=== PATIENT | male | born 1960 | race Caucasian/White ===

== ENCOUNTER 2019-07-08 10:48 | Observation (INO) ==
[2019-07-08 11:20] LABS: POC Blood Urea Nitrogen 18 mg/dl (6-20); POC CO2 24 mmol/L (22-30); POC Calcium, Ionized 1.07 mmol/L (1.16-1.32); POC Chloride 101 mmol/L (96-108); POC Glucose, Random 92 mg/dL (70-105); POC Sodium 137 mmol/L (133-145)
--- NOTE | 2019-07-08 11:42 | Emergency Department Note ---
Abdominal Pain HPI - General Chief Complaint: Abdominal Pain Stated Complaint: severe abd pain Time Seen by Provider: 07/08/19 11:00 Source: patient, family Mode of arrival: wheelchair Limitations: no limitations - History of Present Illness HPI Narrative: 58-year-old male on dialysis comes in complaining of abdominal pain. He is obtunded. He states he feels like he has an infection somewhere. He came in yesterday for cellulitis of the right elbow and was given Keflex and discharged home. He did not have a leukocytosis yesterday. I reviewed the note from yesterday. He seems obtunded but is able to give me reasonable history. He notes that his fistula hurts. they are not using it because it is clogged; he has a dialysis catheter in place on the right upper chest. He feels very ill He sees Dr. Mcconnell in [place] for dialysis and is due tomorrow morning Notes that he had a recent fall off a scaffold with an elbow and wrist fracture as well as fracturing his ileum and tailbone. He says these are okay at this time but he is on Dilaudid for pain - Related Data Home Medications Medication Instructions Recorded Confirmed Cinacalcet [Sensipar] 30 mg PO QAMCC 07/23/15 10/11/15 Cyclobenzaprine [Flexeril] 10 mg PO DAILY 07/23/15 07/08/19 Darbepoetin [place] in Polysorbat 25 mcg IJ MONTHLY 07/23/15 10/11/15 [Aranesp] Lactulose [Enulose] 10 gm PO TID PRN 07/23/15 07/08/19 Metoprolol Tartrate [Lopressor] 25 mg PO BID 07/23/15 10/11/15 Omeprazole [PriLOSEC] 20 mg PO QAM 07/23/15 07/08/19 Sevelamer Carbonate [Renvela] 0.8 gm PO QAM 07/23/15 07/08/19 Zolpidem [Ambien] 5 mg PO HSP PRN 07/23/15 07/08/19 Cyanocobalamin (Vitamin B-12) 2,500 mcg PO DAILY 07/08/19 07/08/19 [Vitamin B12] Milk Thistle 500 mg PO QAM 07/08/19 07/08/19 Previous Rx's Medication Instructions Recorded traMADol [Ultram] 50 mg PO Q4-6HP PRN #20 tablet 07/23/15 Cephalexin [Keflex] 500 mg PO QID #40 cap 07/07/19 Allergies Allergy/AdvReac Type Severity Reaction Status Date / Time ibuprofen [IBUPROFEN] Allergy Mild hives, Verified 07/08/19 10:50 swelling acetaminophen [From TYLENOL] Allergy Unknown HIVES Verified 07/08/19 10:50 hydrocodone Allergy Unknown UNKNOWN Verified 07/08/19 10:50 Penicillins Allergy Unknown UNKNOWN Verified 07/08/19 10:50 Sulfa (Sulfonamide Allergy Unknown UNKNOWN Verified 07/08/19 10:50 Antibiotics) [SULFA (SULFONAMIDE ANTIBIOTICS)] Review of Systems All systems ED: reviewed and negative except as stated. Abdominal Pain PMH - Past Medical History Attestation: Yes: The following information was validated with the patient. [facility] Narrative: Family History Other No pertinent family history Medical History Anxiety (Acute) Antalgic gait (Acute) Peripheral edema (Acute) Renal impairment (Acute) Cirrhosis of liver (Acute) Hypertension (Acute) Lumbar disc prolapse with compression radiculopathy (Acute) Erectile dysfunction (Acute) Groin pain (Acute) Testicular pain (Acute) Dysuria (Acute) Urinary frequency (Acute) Low back pain radiating to both legs (Acute) Hematuria (Acute) Back pain (Acute) Chronic back pain (Acute) Past Surgical History History of hernia repair (Acute) Medical history: Reports: other (Chronic renal disease on dialysis, hypertension, cervical disc disease, chronic back pain) - Social History Smoking status: Former smoker Alcohol use: Reports: None (history of alcoholism states he has quit) Drug use: Reports: none Physical Exam Overweight male obtunded. He is able to wake up and answer questions however. Normocephalic atraumatic. Conjunctive are clear sclera white nonicteric. No nasal discharge or congestion. Oropharynx with dry buccal mucosa. Neck is supple without lymph apathy thyromegaly or carotid bruit. Heart is regular rate and rhythm no murmurs appreciated. Lungs are clear to auscultation bilaterally without wheezes rales rhonchi or respiratory distress. He does have a dialysis catheter in place on the right upper chest wall. Fistula is on his left bicep area. It is mildly tender but not red. Abdomen is soft mildly tender throug hout. Abdomen is nondistended. No peritoneal signs or guarding. Also note right arm with a cast on his wrist and some very mild redness at the extensor surface of his right elbow. This does not appear to be acutely inflamed-Per report this actually looks better. No pedal edema. Limitations: no limitations Course Vital Signs Temperature 97.5 F 07/08/19 10:48 Pulse Rate 73 07/08/19 10:48 Respiratory Rate 26 H 07/08/19 10:48 Blood Pressure 157/94 07/08/19 10:48 Pulse Oximetry (%) 100 07/08/19 10:48 Temperature 97.5 F 07/08/19 10:48 Pulse Rate 106 H 07/08/19 18:31 Respiratory Rate 18 07/08/19 18:13 Blood Pressure 164/75 07/08/19 18:31 Pulse Oximetry (%) 100 07/08/19 18:31 Abdominal Pain - Lab Data Lab results reviewed: Yes I reviewed the patient's lab results. Result diagrams: 07/08/19 11:11 07/08/19 11:11 Lab Results 07/08/19 07/08/19 07/08/19 Range/Units 11:11 11:11 11:11 WBC 4.7 (4.5-11.0) K/mcL RBC 2.62 L (4.50-5.90) M/mcL Hgb 9.1 L (13.5-16.5) g/dL Hct 26.0 L (41.0-55.0) % POC Hct 25.0 L (41.0-55.0) % MCV 99.2 (80.0-100.0) fL MCH 34.7 H (26.0-34.0) pg MCHC 35.0 (31.0-36.0) g/dL RDW 13.8 (11.5-14.5) % Plt Count 171 (140-440) K/mcL MPV 6.9 L (7.4-10.4) fL Total Counted 100 Seg Neutrophils % 73 (38-78) % Band Neutrophils % Not Reportable Lymphocytes % 12 L (15-49) % Monocytes % (Manual) 13 H (1-12) % Eosinophils % (Manual) 2 (0-7) % Platelet Estimate Normal (NORMAL) RBC Morphology Normal (NORMAL) VBG Lactic Acid 1.3 (0.5-2.0) mmol/L POC Sodium 137 (133-145) mmol/L Sodium 137 (133-145) mmol/L POC Potassium 4.0 (3.3-5.1) mmol/L Potassium 4.1 (3.3-5.1) mmol/L POC Chloride 101 (96-108) mmol/L Chloride 100 (96-108) mmol/L Carbon Dioxide 23 (22-30) mmol/L POC Total CO2 24 (22-30) mmol/L Anion Gap 14.0 (8-16) POC BUN 18 (6-20) mg/dl BUN 19 (6-20) mg/dl Creatinine 6.2 H* (0.7-1.2) mg/dl POC Creatinine 7.0 H* (0.7-1.2) mg/dl GFR Calculation 9 Glucose 94 (70-105) mg/dL POC Glucose 92 (70-105) mg/dL Calcium 9.2 (8.6-10.4) mg/dl POC WB Ioniz Calcium 1.07 L (1.16-1.32) mmol/L Total Bilirubin 0.7 (0.0-1.0) mg/dL AST 18 (0-37) U/l ALT 10 (0-40) U/l Alkaline Phosphatase 87 (39-117) U/L Ammonia (16-60) umol/L Total Protein 7.3 (5.9-8.4) gm/dL Albumin 3.7 (3.2-5.2) gm/dL Globulin 3.6 (2.2-3.7) gm/dL Albumin/Globulin Ratio 1.0 (1.0-2.3) Procalcitonin (<0.10) ng/mL Urine Color Urine Appearance Urine pH (5.0-9.0) Ur Specific [place] (1.000-1.035) Urine Protein (NEG) mg/dL Urine Glucose (UA) (NEG) mg/dL Urine Ketones (NEG) mg/dL Urine Occult Blood (<0.03) mg/dL Urine Nitrate (NEG) Urine Bilirubin (NEG) mg/dL Urine Urobilinogen (NEG) mg/dL Ur Leukocyte Esterase (NEG) /uL Urine RBC (0-1) /hpf Urine WBC (0-4) /hpf Ur Squamous Epith Cells (0-4) /hpf Urine Bacteria (0) /hpf 07/08/19 07/08/19 07/08/19 Range/Units 11:11 12:50 13:17 WBC (4.5-11.0) K/mcL RBC (4.50-5.90) M/mcL Hgb (13.5-16.5) g/dL Hct (41.0-55.0) % POC Hct (41.0-55.0) % MCV (80.0-100.0) fL MCH (26.0-34.0) pg MCHC (31.0-36.0) g/dL RDW (11.5-14.5) % Plt Count (140-440) K/mcL MPV (7.4-10.4) fL Total Counted Seg Neutrophils % (38-78) % Band Neutrophils % Lymphocytes % (15-49) % Monocytes % (Manual) (1-12) % Eosinophils % (Manual) (0-7) % Platelet Estimate (NORMAL) RBC Morphology (NORMAL) VBG Lactic Acid (0.5-2.0) mmol/L POC Sodium (133-145) mmol/L Sodium (133-145) mmol/L POC Potassium (3.3-5.1) mmol/L Potassium (3.3-5.1) mmol/L POC Chloride (96-108) mmol/L Chloride (96-108) mmol/L Carbon Dioxide (22-30) mmol/L POC Total CO2 (22-30) mmol/L Anion Gap (8-16) POC BUN (6-20) mg/dl BUN (6-20) mg/dl Creatinine (0.7-1.2) mg/dl POC Creatinine (0.7-1.2) mg/dl GFR Calculation Glucose (70-105) mg/dL POC Glucose (70-105) mg/dL Calcium (8.6-10.4) mg/dl POC WB Ioniz Calcium (1.16-1.32) mmol/L Total Bilirubin (0.0-1.0) mg/dL AST (0-37) U/l ALT (0-40) U/l Alkaline Phosphatase (39-117) U/L Ammonia 10 L (16-60) umol/L Total Protein (5.9-8.4) gm/dL Albumin (3.2-5.2) gm/dL Globulin (2.2-3.7) gm/dL Albumin/Globulin Ratio (1.0-2.3) Procalcitonin < 0.10 (<0.10) ng/mL Urine Color Yellow Urine Appearance Clear Urine pH 9.0 (5.0-9.0) Ur Specific [place] 1.017 (1.000-1.035) Urine Protein 100 A (NEG) mg/dL Urine Glucose (UA) Negative (NEG) mg/dL Urine Ketones Neg (NEG) mg/dL Urine Occult Blood Neg (<0.03) mg/dL Urine Nitrate Neg (NEG) Urine Bilirubin Neg (NEG) mg/dL Urine Urobilinogen Neg (NEG) mg/dL Ur Leukocyte Esterase Neg (NEG) /uL Urine RBC 0 (0-1) /hpf Urine WBC 1 (0-4) /hpf Ur Squamous Epith Cells < 1 (0-4) /hpf Urine Bacteria 0 (0) /hpf - Radiology Data Radiology results reviewed: Yes I reviewed the patient's radiology results. X-ray shows nonspecific bowel gas pattern - EKG Data EKG attestation: Yes I reviewed and interpreted this EKG., Yes There are no EKG findings of acute coronary syndrome, Yes This EKG will be read by english composition instructor Disposition Pt seen by PAINTER SUPERVISOR/PA only: No Clinical Impression: Cellulitis of right elbow, Chronic kidney disease with end stage renal failure on dialysis, Refractory nausea and vomiting, Drug-induced nausea and vomiting, Hypertensive urgency Summary: Concern for sepsis as the patient looks quite ill. Get blood cultures start Levaquin. Labs ordered. At this time he does not require resuscitation with fluids as his blood pressure and vitals are adequate. He does make urine so we will test that as well Abdominal x-ray series shows nonspecific bowel gas. Reviewed the CT of the abdomen pelvis from yesterday which had no acute findings Laboratory here today is unrevealing. Urinalysis is sent off. Ammonia level was added. He was less obtunded Ammonia level was okay. After further reassessing the patient it does sound like maybe he is not tolerating the hydromorphone that he is taking for his pain. He wants to try and eat something perhaps some hot broth. So we will give him a trial of oral intake see how he does. At this time CT scan was normal yesterday and laboratory remained normal today here. He is making urine that is normal Ordered hydralazine for his blood pressure. We gave him lactulose for his constipation-takes this at home as well His nausea waxed and waned. However he had some dry heaves after trying to eat some broth and crackers I discussed his case with Dr. Mcconnell, his drip box tender, who agreed to consult on the patient for dialysis tomorrow. I then discussed the case with our hospitalist Dr. Hastings. He agreed to accept the patient for further care and evaluation in the hospital. He recommended we start a nicardipine drip for his hypertensive urgency Disposition: Xfer As Inpt (TS) Condition: Fair
[2019-07-08 11:46] LABS: Hemoglobin 9.1 g/dL (13.5-16.5); Mean Cell Volume 99.2 fL (80.0-100.0); Mean Platelet Volume 6.9 fL (7.4-10.4); Platelet Count 171 K/mcL (140-440); RBC 2.62 M/mcL (4.50-5.90); Red Cell Distribution Width 13.8 % (11.5-14.5); WBC 4.7 K/mcL (4.5-11.0)
[2019-07-08] MEDS ORDERED: LEVOFLOXACIN 500 MG/100 ML BAG IV ONE (11:52)
--- NOTE | 2019-07-08 11:59 | XRay Report ---
HISTORY: Left-sided abdominal pain with fever and chills. FINDINGS: The patient has a TIPS stent located high in the right lobe of the liver. The bowel gas pattern is normal. There is no free intra-abdominal air. There is a hiatus hernia. A radiopaque tablet in present in the ascending colon. There is no evidence of bowel obstruction or ileus Mild arthritis is present in the lumbar spine. There has been no significant change from the abdomen and pelvic CT scan done on 07/07/19. IMPRESSION: No acute abnormality Interpreted and Authenticated by: Félix Cornelius 07/08/19
[2019-07-08 12:09] LABS: ALT/SGPT 10 U/l (0-40); AST/SGOT 18 U/l (0-37); Albumin 3.7 gm/dL (3.2-5.2); Alkaline Phosphatase 87 U/L (39-117); Bilirubin,Total 0.7 mg/dL (0.0-1.0); Blood Urea Nitrogen 19 mg/dl (6-20); Calcium 9.2 mg/dl (8.6-10.4); Carbon Dioxide 23 mmol/L (22-30); Chloride 100 mmol/L (96-108); Globulin 3.6 gm/dL (2.2-3.7); Glomerular Filtration Rate 9; Glucose 94 mg/dL (70-105)
[2019-07-08 12:14] LABS: Eosinophils % (Manual) 2 % (0-7); Lymphocytes % 12 % (15-49); Monocytes % (Manual) 13 % (1-12); Platelet Estimate NORMAL (NORMAL); RBC Morphology NORMAL (NORMAL); Segmented Neutrophils % 73 % (38-78)
[2019-07-08 13:32] LABS: Appearance,Urine CLEAR; Bacteria,Urine 0 /hpf (0); Bilirubin,Urine NEG (NEG); Color,Urine YELLOW; Glucose,Urine (UA) NEGATIVE (NEG); Ketones,Urine NEG (NEG); Leukocyte Esterase,Urine NEG /uL (NEG); Nitrate,Urine NEG (NEG); Protein,Urine 100 mg/dL (NEG); Specific Gravity,Urine 1.017 (1.000-1.035); Urine Blood NEG mg/dL (<0.03); Urine RBC 0 /hpf (0-1); Urine Squamous Epithelial Cell < 1 /hpf (0-4); Urine WBC 1 /hpf (0-4); Urobilinogen,Urine NEG (NEG)
[2019-07-08] MEDS ORDERED: hydrALAZINE 20 MG/ML VIAL IV ONE (15:12)
[2019-07-08] MEDS ORDERED: ONDANSETRON 4 MG/2 ML VIAL IV ONE (16:25)
[2019-07-08] MEDS ORDERED: PROMETHAZINE 25 MG/ML VIAL IV ONE (16:56)
[2019-07-08] MEDS ORDERED: LACTULOSE 20 GM/30 ML ORAL.SOL PO ONE (17:05)
[2019-07-08] MEDS ORDERED: niCARdipine 25 MG in 0.9 % SODIUM CHLORIDE 240 ML IV ONE (17:40)
[2019-07-08] MEDS ORDERED: ACETAMINOPHEN 325 MG TABLET PO PRN (18:40)
[2019-07-08] MEDS ORDERED: ONDANSETRON 4 MG/2 ML VIAL IV PRN (18:40)
--- NOTE | 2019-07-08 18:48 | Internal Med History&Physical ---
Medical - H&P: [facility] Patient information: Note initiated : 07/08/19 at 6:45 pm Service Date, if different from initiated Date: [] Patient: Aba Jarvis a 58 y/o M admitted on 07/08/19 for severe abd pain. Chief Complaint: [] Chief complaint: Abdominal pain, nausea vomiting History of present illness: Mr. Jarvis is a 58 year old M with a history of liver cirrhosis, ESRD on HD managed by Dr. Mcconnell. Patient presents second time to the ER in the last 48 hours with increasing nausea weakness and abdominal pain. Patient had a very eventful last 3 weeks after he fell from a scaffolding sustaining multiple right wrist fracture, pelvis fracture, elbow fracture. Is currently on her right wrist splint shortly following the injury patient left arm fistula occluded and he was sent to [facility] for dialysis catheter placement. He has been receiving dialysis 3 times a week however over the last 48 hours has noted increased abdominal pain, weakness, persistent nausea and vomiting unable to take anything by mouth. He was at [facility] 2 days ago and was discharged after a brief stay. He then presented to [place] ER initial work-up of the abdomen was unremarkable except for cellulitis right elbow. He was started on Keflex and was discharged home. He presents again today with multiple symptoms including abdominal pain, left arm fistula site pain and nausea and increasing confusion. Initial blood work was unremarkable except being consistent with a ESRD. Systolics around 190s to 200. Patient was started on nicardipine drip. Hospitalist service was consulted in light of persistent symptoms and failed outpatient treatment and hypertensive urgency. At the time of evaluation patient is anxious, distressed for abdominal pain/left fistula site pain. He is tachycardic and tremulous. He however denies fever chills, diarrhea, recent sick contacts. He denies changes in medications. He denies prior similar episodes. He endorses to bilious vomiting multiple episodes in the last 24 hours. Review of systems A 10 point review of system was performed and is negative except as above Medical - H&P: PMH Medical history: Antalgic gait (Acute) Back pain (Acute) Chronic back pain (Acute) Cirrhosis of liver (Acute) Dysuria (Acute) Erectile dysfunction (Acute) since hernia surgery, 2013 Groin pain (Acute) Hematuria (Acute) Hypertension (Acute) Low back pain radiating to both legs (Acute) Lumbar disc prolapse with compression radiculopathy (Acute) Peripheral edema (Acute) Renal impairment (Acute) Testicular pain (Acute) Urinary frequency (Acute) Surgical HistoryReviewed 10/11/15 by Neha Carreno RN History of hernia repair (Acute) 2013 Family History Other No pertinent family history Social History Smoking Status: Never smoker Alcohol intake frequency: does not drink Lives alone Medical - H&P: Meds Home Medications Medication Instructions Recorded Confirmed Type Cinacalcet [Sensipar] 30 mg PO QAMCC 07/23/15 07/08/19 History Cyclobenzaprine [Flexeril] 10 mg PO DAILY 07/23/15 07/08/19 History Darbepoetin Stanley in Polysorbat 25 mcg IJ MONTHLY 07/23/15 07/08/19 History [Aranesp] Lactulose [Enulose] 10 gm PO TID PRN 07/23/15 07/08/19 History Metoprolol Tartrate [Lopressor] 25 mg PO BID 07/23/15 07/08/19 History Omeprazole [PriLOSEC] 20 mg PO QAM 07/23/15 07/08/19 History Sevelamer Carbonate [Renvela] 0.8 gm PO QAM 07/23/15 07/08/19 History Zolpidem [Ambien] 5 mg PO HSP PRN 07/23/15 07/08/19 History traMADol [Ultram] 50 mg PO Q4-6HP PRN #20 tablet 07/23/15 07/08/19 Rx Cephalexin [Keflex] 500 mg PO QID #40 cap 07/07/19 07/08/19 Rx Cyanocobalamin (Vitamin B-12) 2,500 mcg PO DAILY 07/08/19 07/08/19 History [Vitamin B12] Milk Thistle 500 mg PO QAM 07/08/19 07/08/19 History Allergies Allergy/AdvReac Type Severity Reaction Status Date / Time acetaminophen [From TYLENOL] Allergy Intermediate HIVES Verified 07/09/19 07:52 hydrocodone Allergy Intermediate Hives Verified 07/09/19 07:52 Penicillins Allergy Intermediate Hives Verified 07/09/19 07:51 ibuprofen [IBUPROFEN] Allergy Mild hives, Verified 07/08/19 10:50 swelling Sulfa (Sulfonamide Allergy Unknown UNKNOWN Verified 07/08/19 10:50 Antibiotics) [SULFA (SULFONAMIDE ANTIBIOTICS)] Medical - H&P: Exam - Constitutional Vitals: Temp Pulse Resp BP Pulse Ox 97.5 F 106 H 18 164/75 100 07/08/19 10:48 07/08/19 18:31 07/08/19 18:13 07/08/19 18:31 07/08/19 18:31 General appearance: moderate distress (Anxious) Exam: Anxious and distressed from abdominal pain Alert intermittently confused anxious and fidgety Head normocephalic Oral cavity dry No ear nose discharge No scleral icterus Neck no lymphadenopathy S1-S2 tachycardia, ESM grade 2 Diminished breath sounds bases right anterior chest subclavian dialysis catheter abdomen soft nontender no fluid or guarding Lower extremity no cyanosis clubbing no joint swelling, right wrist in cast, left side fistula occluded tender Skin no suspicious lesion Psych anxious but alert and cooperative Neuro confused but moving all 4 extremities Medical - H&P: Reslt - Labs CBC & Chem 7: 07/09/19 04:00 07/09/19 04:00 Labs: Short CBC 07/08/19 Range/Units 11:11 WBC 4.7 (4.5-11.0) K/mcL Hgb 9.1 L (13.5-16.5) g/dL Hct 26.0 L (41.0-55.0) % Plt Count 171 (140-440) K/mcL BMP 07/08/19 11:11 Sodium 137 Potassium 4.1 Chloride 100 Carbon Dioxide 23 BUN 19 Creatinine 6.2 H* Glucose 94 Calcium 9.2 Liver Function 07/08/19 Range/Units 11:11 Total Bilirubin 0.7 (0.0-1.0) mg/dL AST 18 (0-37) U/l ALT 10 (0-40) U/l Alkaline Phosphatase 87 (39-117) U/L Albumin 3.7 (3.2-5.2) gm/dL Urine 07/08/19 Range/Units 12:50 Urine Color Yellow Urine Appearance Clear Urine pH 9.0 (5.0-9.0) Ur Specific [place] 1.017 (1.000-1.035) Urine Protein 100 A (NEG) mg/dL Urine Glucose (UA) Negative (NEG) mg/dL Medical - H&P: A/P (1) Hypertensive urgency Current visit: Yes Status: Acute * Hypertensive urgency-continue management protocol. Start nicardipine drip. target systolic reduction 20% in the first 24 hours Nephrology consulted * ESRD on HD-managed by nephrology Dr. Mcconnell * Nausea vomiting secondary to hypertensive urgency. Continue symptomatic management * Acute encephalopathy secondary to hypertensive urgency-continue close monitoring. Normal ammonia. * History of cirrhosis continue Aldactone/Lasix * History of recurrent hepatic encephalopathy continue lactulose * History of hypertension continue metoprolol/spironolactone/clonidine. * Anemia of chronic disease management nephrology * History of CAD on Plavix/beta-vivien * GERD continue PPI * Full code * Prophylaxis heparin Plan * Observation admit * Nicardipine drip * Close hemodynamic monitoring * Prior medical condition management on home medications
[2019-07-08] MEDS ORDERED: cefTRIAXone 2 GM VIAL ONE (19:11)
[2019-07-08] MEDS: cefTRIAXone 2 GM in DEXTROSE 5% IN WATER 50 ML IV SCH (20:56)
[2019-07-08] MEDS ORDERED: SENNOSIDES/DOCUSATE SODIUM 1 TAB TABLET PO SCH (21:00)
[2019-07-08] MEDS: DOCUSATE SODIUM 100 MG CAPSULE PO SCH (21:01)
[2019-07-08] MEDS: HEPARIN 5,000 UNIT/ML VIAL SQ SCH (21:01)
[2019-07-08] MEDS ORDERED: fentaNYL 100 MCG/2 ML VIAL IV ONE (22:00)
[2019-07-08] MEDS ORDERED: LORazepam 2 MG/ML VIAL IV PRN (22:11)
[2019-07-08] MEDS: 0.9 % SODIUM CHLORIDE 10 ML SYRINGE IV SCH (22:13)
[2019-07-08] MEDS ORDERED: LORazepam 2 MG/ML VIAL ONE (22:58)
[2019-07-09] MEDS ORDERED: fentaNYL 100 MCG/2 ML VIAL IV ONE ×2 (02:28→04:35)
[2019-07-09] MEDS: fentaNYL 100 MCG/2 ML VIAL IV PRN ×3 (02:28→08:38)
[2019-07-09] MEDS ORDERED: LORazepam 2 MG/ML VIAL ONE (05:04)
[2019-07-09] MEDS: 0.9 % SODIUM CHLORIDE 10 ML SYRINGE IV SCH (05:44)
[2019-07-09 07:09] LABS: Hematocrit 20.5 % (41.0-55.0); Hemoglobin 6.9 g/dL (13.5-16.5); Mean Cell Volume 101.5 fL (80.0-100.0); Mean Corpuscular HGB Conc 33.8 g/dL (31.0-36.0); Mean Platelet Volume 7.1 fL (7.4-10.4); Platelet Count 131 K/mcL (140-440); RBC 2.02 M/mcL (4.50-5.90); Red Cell Distribution Width 13.3 % (11.5-14.5); WBC 3.9 K/mcL (4.5-11.0)
[2019-07-09 07:23] LABS: ALT/SGPT 7 U/l (0-40); AST/SGOT 14 U/l (0-37); Albumin 2.8 gm/dL (3.2-5.2); Alkaline Phosphatase 66 U/L (39-117); Bilirubin,Direct < 0.2 mg/dL (0.0-0.3); Bilirubin,Total 0.4 mg/dL (0.0-1.0); Blood Urea Nitrogen 18 mg/dl (6-20); Calcium 7.6 mg/dl (8.6-10.4); Carbon Dioxide 18 mmol/L (22-30); Chloride 112 mmol/L (96-108); Globulin 2.7 gm/dL (2.2-3.7); Glomerular Filtration Rate 10; Glucose 73 mg/dL (70-105); Lactate Dehydrogenase 169 U/L (94-250); Triglycerides 74 mg/dl (<150); Uric Acid 4.1 mg/dL (2.5-8.0)
[2019-07-09 08:01] LABS: Band Neutrophils % 1 % (0-10); Eosinophils % (Manual) 4 % (0-7); Hypochromasia 1+ (NONE SEEN); Lymphocytes % 13 % (15-49); Macrocytosis 1+ (NONE SEEN); Monocytes % (Manual) 5 % (1-12); Platelet Estimate DECREASED (NORMAL); Polychromasia FEW (NONE SEEN); RBC Morphology ABNORM (NORMAL); Segmented Neutrophils % 77 % (38-78)
[2019-07-09] MEDS: DOCUSATE SODIUM 100 MG CAPSULE PO SCH (08:35)
[2019-07-09] MEDS: HEPARIN 5,000 UNIT/ML VIAL SQ SCH (08:39)
[2019-07-09] MEDS: cefTRIAXone 2 GM in DEXTROSE 5% IN WATER 50 ML IV SCH (09:00)
[2019-07-09] MEDS ORDERED: MULTIVIT,THER IRON,CA,FA & MIN 1 TABLET PO SCH (09:00)
--- NOTE | 2019-07-09 09:16 | Internal Med Progress Note ---
Medical - PN: Subj Patient information: Note initiated : 07/09/19 at 9:15 am Service Date, if different from initiated Date: [] Patient: Aba Jarvis a 58 y/o M admitted on 07/08/19 for severe abd pain. Chief Complaint: [] Interval history: Mr. Jarvis is a 58 year old M with a history of liver cirrhosis, ESRD on HD m anaged by Dr. Mcconnell. Patient presents second time to the ER in the last 48 hours with increasing nausea weakness and abdominal pain. Patient had a very eventful last 3 weeks after he fell from a scaffolding sustaining multiple right wrist fracture, pelvis fracture, elbow fracture. Is currently on her right wrist splint shortly following the injury patient left arm fistula occluded and he was sent to [facility] for dialysis catheter placement. He has been receiving dialysis 3 times a week however over the last 48 hours has noted increased abdominal pain, weakness, persistent nausea and vomiting unable to take anything by mouth. He was at [place] 2 days ago and was discharged after a brief stay. He then presented to [place] ER initial work-up of the abdomen was unremarkable except for cellulitis right elbow. He was started on Keflex and was discharged home. He presents again today with multiple symptoms including abdominal pain, left arm fistula site pain and nausea and increasing confusion. Initial blood work was unremarkable except being consistent with a ESRD. Systolics around 190s to 200. Patient was started on nicardipine drip. Hospitalist service was consulted in light of persistent symptoms and failed outpatient treatment and hypertensive urgency. At the time of evaluation patient is anxious, distressed for abdominal pain/left fistula site pain. He is tachycardic and tremulous. He however denies fever chills, diarrhea, recent sick contacts. He denies changes in medications. He denies prior similar episodes. He endorses to bilious vomiting multiple episodes in the last 24 hours. 07/09-systolics improved. Off nicardipine drip since psych arnp. Patient however agitated and requesting to leave. He feels that he is back to baseline and would want to go. However patient is clearly confused and has been refusing treatments since this morning. Patient is a high risk of decompensation in light of 3 recent ER visits and unwilling to stay for further evaluation and treatment. Patient may leave AGAINST MEDICAL ADVICE but at this time is clearly not ready for a safe discharge with his systolics around 170s. - Constitutional Vitals: Vital Signs Temp Pulse Resp BP Pulse Ox 98.9 F 87 18 166/90 98 07/09/19 08:00 07/09/19 08:00 07/09/19 08:00 07/09/19 08:00 07/09/19 08:00 Period Temp Pulse Resp BP Sys/Moeller Pulse Ox Last 24 Hr 97.5 F-99.6 F 59-107 8-32 114-207/54-154 95-100 Intake and Output 07/08/19 07/09/19 07/09/19 21:59 05:59 13:59 Intake Total 28 360 Output Total 200 100 Balance -172 260 Weight 255 lb 4.8 oz Intake & Output: Intake & Output 07/08/19 07/09/19 07/09/19 21:59 05:59 13:59 Intake Total 28 360 Output Total 200 100 Balance -172 260 Weight 255 lb 4.8 oz Intake: IV 28 Cardene 25 MG In Sodium 28 Chloride 0.9% 240 ml @ 5 MG/HR 50 mls/hr IV ONCE ONE Rx#: [id number] Oral 360 Output: Void Amount 200 100 Other: Meal Breakfast Percent of Meal Consumed 100% Feeding Ability Independent Urine Appearance Clear Clear Urine Color Bright Yellow Bright Yellow Urine Odor Normal Stool Size Small Moderate Stool Color Brown Brown Stool Consistency Normal for Patient Loose # Bowel Movements 2 1 General appearance: no acute distress Exam: Anxious agitated Unlabored breathing No telemetry events Left arm fistula site no thrill Medical - PN: Obj Da - Labs CBC & Chem 7: 07/09/19 04:00 07/09/19 04:00 Labs: Abnormal Lab Results 07/09/19 07/09/19 07/08/19 04:00 04:00 13:17 WBC 3.9 L RBC 2.02 L Hgb 6.9 L* Hct 20.5 L* POC Hct MCV 101.5 H MCH 34.3 H Plt Count 131 L MPV 7.1 L Lymphocytes % 13 L Monocytes % (Manual) Platelet Estimate Decreased A RBC Morphology Abnorm A Polychromasia Few A Hypochromasia 1+ A Macrocytosis 1+ A Potassium 3.1 L Chloride 112 H Carbon Dioxide 18 L Creatinine 6.0 H* POC Creatinine Calcium 7.6 L POC WB Ioniz Calcium Magnesium 1.5 L Ammonia 10 L Total Protein 5.5 L Albumin 2.8 L Urine Protein 07/08/19 07/08/19 07/08/19 12:50 11:11 11:11 WBC RBC 2.62 L Hgb 9.1 L Hct 26.0 L POC Hct 25.0 L MCV MCH 34.7 H Plt Count MPV 6.9 L Lymphocytes % 12 L Monocytes % (Manual) 13 H Platelet Estimate RBC Morphology Polychromasia Hypochromasia Macrocytosis Potassium Chloride Carbon Dioxide Creatinine 6.2 H* POC Creatinine 7.0 H* Calcium POC WB Ioniz Calcium 1.07 L Magnesium Ammonia Total Protein Albumin Urine Protein 100 A Meds: Medications Docusate Sodium (Colace) 100 mg PO BID [facility] Last Admin: 07/09/19 08:35 Dose: Not Given Documented by: Fentanyl (Sublimaze) 25 mcg IV Q2HP PRN PRN Reason: PAIN LEVEL > 6 Last Admin: 07/09/19 08:38 Dose: 25 mcg Documented by: Heparin Sodium (Porcine) (Heparin) 5,000 unit SQ Q12 [facility] Last Admin: 07/09/19 08:39 Dose: 5,000 unit Documented by: Ceftriaxone Sodium 2 gm/ (Dextrose) 50 mls @ 100 mls/hr IV Q24H [facility]; Protocol Last Admin: 07/08/19 20:56 Dose: Not Given Documented by: Iron Carb/Multivit/Release Specialist/Folic Acid (Multivitamin W/Minerals) 1 tab PO DAILY [facility] Lorazepam (Ativan) 0.5 mg IV Q4HP PRN PRN Reason: ANXIETY/SEDATION Ondansetron HCl (Zofran) 4 mg IV Q4-6HP PRN PRN Reason: Nausea And Vomiting Senna/Docusate Sodium (Senna Plus Tablet) 1 tab PO HS [facility] Last Admin: 07/08/19 21:01 Dose: 1 tab Documented by: Sodium Chloride (Saline Flush) 10 ml IV Q8 [facility] Last Admin: 07/09/19 05:44 Dose: 10 ml Documented by: Medical - PN: A/P - Time Spent With Patient Total time spent is greater than 50% in coordination of care (as documented) at patient's floor/unit and/or counseling patient: 25 - 35 minutes (1) Hypertensive urgency Status: Acute Assessment and plan: * Hypertensive urgency-clinically improving. Off nicardipine drip. Titrating home medications. Await nephrology consult * ESRD on HD-HD scheduled today by Dr. Mcconnell nephrology * Nausea vomiting secondary to hypertensive urgency. Clinical improvement noted on symptomatic management * Acute encephalopathy secondary to hypertensive urgency-clinically improving however now getting agitated and wanting to leave AGAINST MEDICAL ADVICE. normal ammonia. * History of cirrhosis continue Aldactone/Lasix * History of recurrent hepatic encephalopathy continue lactulose * History of hypertension continue metoprolol/spironolactone/clonidine. * Anemia of chronic disease management per nephrology * Recent fall with right wrist fracture/left elbow fracture and pelvis fracture remains high risk decompensation. Continue pain management/PT OT * History of CAD on Plavix/beta-vivien * GERD continue PPI * Full code * Prophylaxis heparin Plan * Continue close hemodynamic monitoring * Patient however may leave AGAINST MEDICAL ADVICE * Up titrate antihypertensives to effect * Await HD per nephrology * Pain management/PT OT * Continue pre-existing medical issues management on home medications Current Visit: Yes Medical - PN: Qual - VTE Deep Vein Thrombosis/Pulmonary Embolism Present on Admission: No
== END 2019-07-09 09:35 | disposition left against medical advice (07) ==
LOC: ICU 10:48 → ED 10:48 → ICU 18:33
PROVIDERS: ADMIT Internal Medicine; ATTEND Internal Medicine

== ENCOUNTER 2022-10-16 09:58 | Inpatient (IN) ==
[2022-10-16 10:21] LABS: POC Calcium, Ionized 0.99 (1.16-1.32); POC Creatinine 16.8 (0.6-1.2); POC Potassium 5.5 (3.3-5.1)
[2022-10-16 10:27] LABS: POC INR 1.6 (0.8-1.2)
--- NOTE | 2022-10-16 10:27 | Emergency Department Note ---
Altered Mental Status HPI General Chief Complaint: Altered Mental Status Stated Complaint: MISSED DIALYSIS Time Seen by Provider: 10/16/22 10:13 Source: family and EMS Mode of arrival: EMS Limitations: altered mental status History of Present Illness HPI Narrative: Narrative: Patient presents to ED via EMS with concerns of altered mental status. Patient's mother who lives with pt dtates he has had no injury but has been on the ground. He has missed dialysis x3. Patient does not really answer my questions appropriately so all questions were obtained from his mother who was at bedside. She denies fever, nausea, vomiting, diarrhea, recent fall, head trauma. Spoke to patient's brother over the phone states that if patient is to be transferred they want him transferred to [facility]. No other information av ailable at this time. Related Data Home Medications Medication Instructions Recorded Confirmed omeprazole 20 mg capsule,delayed 20 mg PO QAM 07/23/15 10/10/22 release milk thistle 500 mg capsule 500 mg PO QAM 07/08/19 10/10/22 vitamin B complex-vitamin C-folic 1 tab PO QDAY 07/29/19 10/10/22 acid 0.8 mg tablet (Heidi-Lalo) cholecalciferol (vitamin D3) 125 125 mcg PO QDAY 06/16/21 10/10/22 mcg (5,000 unit) capsule Previous Rx's Medication Instructions Recorded furosemide 80 mg tablet 80 mg PO BID cirrhosis, ESRD, 12/12/21 swelling #60 tabs calcium carbonate 200 mg calcium 200 mg PO .TID with meal #100 tabs 12/26/21 (500 mg) chewable tablet metoprolol succinate 100 mg 100 mg PO QDAY HTN and liver 12/26/21 tablet,extended release 24 hr disease #30 tabs valsartan 320 mg tablet 320 mg PO QDAY #90 tabs 01/11/22 cyanocobalamin (vitamin B-12) 500 500 mcg PO QDAY Cirrhosis #100 tabs 02/08/22 mcg tablet minoxidil 2.5 mg tablet 2.5 mg PO BID HYPERTENSION #100 02/08/22 tabs morphine 15 mg tablet,extended 15 mg PO Q8H PRN Pain #60 tabs 07/18/22 release gabapentin 100 mg capsule 100 mg PO QHS #30 caps 09/04/22 trazodone 50 mg tablet 50 mg PO QHS PRN insomnia #30 tabs 09/04/22 baclofen 10 mg tablet 10 mg PO .COMPLEX #60 tabs 10/10/22 codeine sulfate 60 mg tablet 60 mg PO BID PRN pain #60 tabs 10/10/22 Allergies Allergy/AdvReac Type Severity Reaction Status Date / Time acetaminophen [From TYLENOL] Allergy Intermediate HIVES Verified 10/10/22 08:46 hydrocodone Allergy Intermediate Hives Verified 10/10/22 08:46 Penicillins Allergy Intermediate Hives Verified 10/10/22 08:46 ibuprofen [IBUPROFEN] Allergy Mild hives, Verified 10/10/22 08:46 swelling hydrochlorothiazide Allergy Unknown Unknown Verified 10/10/22 08:46 oxycodone Allergy Unknown Unknown Verified 10/10/22 08:46 Sulfa (Sulfonamide Allergy Unknown UNKNOWN Verified 10/10/22 08:46 Antibiotics) [SULFA (SULFONAMIDE ANTIBIOTICS)] Review of Systems ROS ROS Narrative: Narrative: All systems ED: reviewed and negative except as stated. PFSH Narrative Patient History Narrative: Narrative: Medical/Surgical/Family History All Active Problems Biceps tendon tear (Acute) Rotator cuff tear, right (Acute) Shoulder pain, right (Acute) Forearm pain (Acute) Pain in right buttock (Acute) Contusion of forearm, left (Acute) Chest pain (Acute) Bleeding per rectum (Acute) Lower gastrointestinal hemorrhage (Acute) Chest pain (Acute) Left rotator cuff tear (Acute) Acute pain of both shoulders (Acute) Right rotator cuff tear (Acute) Infiltrate noted on imaging study (Acute) Chronic back pain (Chronic) Back pain (Chronic) Hematuria (Chronic) Low back pain radiating to both legs (Chronic) Urinary frequency (Chronic) Dysuria (Chronic) Testicular pain (Chronic) Groin pain (Chronic) Erectile dysfunction (Chronic) History of hernia repair (Chronic) Lumbar disc prolapse with compression radiculopathy (Chronic) Hypertension (Chronic) Cirrhosis of liver (Chronic) Renal impairment (Chronic) Peripheral edema (Chronic) Antalgic gait (Chronic) Anxiety (Chronic) Abdominal pain (Chronic) Chronic kidney disease (Chronic) Cellulitis of right elbow (Chronic) Chronic kidney disease with end stage renal failure on dialysis (Chronic) Refractory nausea and vomiting (Chronic) Hypertensive urgency (Chronic) Drug-induced nausea and vomiting (Chronic) Hypertensive urgency (Chronic) Anemia (Chronic) Hip pain (Chronic) Gastroenteritis (Chronic) Olecranon bursitis, right elbow (Chronic) Hip pain, right (Chronic) Acute pelvic pain (Chronic) Low back pain (Chronic) Wrist pain, right (Chronic) Encounter for hemodialysis for end-stage renal disease (Chronic) Portal hypertension (Chronic) DDD (degenerative disc disease), lumbar (Chronic) Arthritis, lumbar spine (Chronic) Arthritis of both hips (Chronic) Chest pain, atypical (Chronic) ESRF (end stage renal failure) (Chronic) Mitral regurgitation (Chronic) Internal hemorrhoids (Chronic) Diverticulosis of colon without hemorrhage (Chronic) History of surgery (Chronic) Abdominal pain in male (Chronic) Lumbar disc prolapse with compression radiculopathy (Chronic) Initial Medicare annual wellness visit (Chronic) Candidiasis of other urogenital sites (Chronic) Left foot pain (Chronic) Hammer toe of left foot (Chronic) Dysuria-frequency syndrome (Chronic) Pelvic fracture (Chronic) Left flank pain (Chronic) Encounter for pain management (Chronic) Radiculopathy, lumbosacral region (Chronic) Radiculopathy, lumbar region (Chronic) Chronic pain (Chronic) Hepatitis C (Chronic) GERD (gastroesophageal reflux disease) (Chronic) Other chronic nonalcoholic liver disease (Chronic) Kidney disease (Chronic) Liver failure (Chronic) Asthma (Chronic) AV fistula (Chronic) Anemia in chronic kidney disease, on chronic dialysis (Acute) Secondary hyperparathyroidism of renal origin (Acute) Acute urinary retention (Acute) Other sprain of right shoulder joint, initial encounter (Acute) Urinary urgency (Acute) Pelvic pain in male (Acute) Dehydration, moderate (Acute) Acute on chronic anemia (Acute) Abdominal pain (Acute) Anemia (Acute) ESRD (end stage renal disease) on dialysis (Chronic) BPH loc w urin obs/LUTS (Acute) Medical History Acute pelvic pain Antalgic gait Anxiety Arthritis of both hips Arthritis, lumbar spine Asthma AV fistula Back pain Chest pain, atypical Chronic back pain Chronic pain Cirrhosis of liver DDD (degenerative disc disease), lumbar spine, with myelopathy Diverticulosis of colon without hemorrhage Dysuria Encounter for hemodialysis for end-stage renal disease Erectile dysfunction since hernia surgery, 2013 ESRF (end stage renal failure) GERD (gastroesophageal reflux disease) Groin pain Hematuria Hepatitis C Hip pain, right Hypertension Internal hemorrhoids Kidney disease Liver failure Low back pain Low back pain radiating to both legs Lumbar disc prolapse with compression radiculopathy Mitral regurgitation mild Olecranon bursitis, right elbow Other chronic nonalcoholic liver disease Peripheral edema Portal hypertension Radiculopathy, lumbar region Radiculopathy, lumbosacral region Renal impairment Testicular pain Urinary frequency Wrist pain, right Surgical History History of carpal tunnel release History of cholecystectomy History of hernia repair 2013 History of renal stent History of surgery AV Graft: LUE History of surgery TF KENNEY #1 L5-S1, S1 w/o sed 09/07/201610/04 TF KENNEY #3 Right L4-5 w/o sed 09/22/1409/04 LESI #2 L4-5 w/o 09/07/1408/04 TF KENNEY #1, Right L5-S1 w/o sed 08/19/2014 Family History Other No pertinent family history Social History Smoking Status: Never smoker Alcohol Intake Frequency: 0-2 drinks per day Substance Use: marijuana Exam Narrative Narrative: Narrative: General Limitations: altered mental status General appearance: Absent in distress Eye Eye: Present PERRL and EOMI ENT ENT: Present normal oropharynx and mucous membranes moist Respiratory Respiratory: Present normal lung sounds bilaterally; Absent respiratory distress Cardiovascular Cardiovascular: Present normal rhythm Adbominal Abdominal: Present soft; Absent tenderness Extremities Extremities: Present normal capillary refill Neurological Neurological: Present alert Expanded Neurological Patient oriented to: Present person and place; Absent time Psychiatric Psychiatric: Present flat affect Skin Skin: Present warm (WNL) and intact Course Course Course Narrative: Patient was evaluated for altered mental status. Patient was alert and oriented to self and place but not time. He was very lethargic and did not answer most of my questions appropriately. Labs show that his ammonia level was elevated. His liver enzymes were slightly elevated as well. CT of the head was obtained with image reviewed myself with no acute intracranial findings. X chest x-ray obtained with image reviewed myself no acute cardiopulmonary findings. EKG was unremarkable. White cell count normal. Patient was hemodynamically stable. Case was discussed with behavioral health technician who states that they will perform dialysis if patient is admitted to the hospital. Case was discussed with hospitalist who has agreed to admit the patient. Consultations Consultation #1: Case discussed with behavioral health technician, Dr. Ruiz, who recommends the patient be admitted to the hospitalist for emergent dialysis Time: 11:02 Consultation #2: Case discussed with hospitalist who has agreed to admit the patient. Time: 11:20 Vital Signs Vital signs: Vital Signs Pulse Rate 85 10/16/22 09:58 Respiratory Rate 18 10/16/22 09:58 Blood Pressure 171/98 10/16/22 09:58 Pulse Oximetry (%) 97 10/16/22 09:58 Oxygen Delivery Method 10/16/22 09:58 Pulse Rate 62 10/16/22 11:16 Respiratory Rate 12 10/16/22 11:16 Blood Pressure 137/65 10/16/22 11:16 Pulse Oximetry (%) 96 10/16/22 11:16 Oxygen Delivery Method 10/16/22 09:58 MDM MDM Narrative Medical decision making narrative: Narrative: Differential Diagnosis Differential Diagnosis: Metabolic encephalopathy, stroke Medical Records Medical records reviewed: Yes I reviewed the patient's medical records. Lab Data Lab results reviewed: Yes I reviewed the patient's lab results. Result diagrams: 10/16/22 10:08 Labs: Lab Results 10/16/22 10/16/22 10/16/22 Range/Units 10:06 10:06 10:08 WBC 6.0 (4.5-11.0) K/mcL RBC 2.79 L (4.63-6.08) M/mcL Hgb 9.6 L (13.7-17.5) g/dL Hct 28.4 L (40.1-51.0) % POC Hct 30.0 L (41-55) MCV 101.8 H (80.0-100.0) fL MCH 34.4 H (26.0-34.0) pg MCHC 33.8 (31.0-36.0) g/dL RDW 16.9 H (11.5-14.5) % Plt Count 142 (140-440) K/mcL MPV 9.3 (8.8-12.5) fL Immature Gran % (Auto) 0.3 (0.0-0.5) % Neut % (Auto) 72.5 (38.0-78.0) % Lymph % (Auto) 12.7 L (15.5-49.0) % [place] % (Auto) 10.2 (1.0-12.0) % Eos % (Auto) 3.5 (0.0-7.0) % Baso % (Auto) 0.8 (0.0-2.0) % Lymph # (Auto) 0.76 L (1.50-4.80) K/mcL [place] # (Auto) 0.61 (0.10-0.90) K/mcL Eos # (Auto) 0.21 (0.00-0.70) K/mcL Baso # (Auto) 0.05 (0.00-0.30) K/mcL Immature Gran # 0.02 (0.00-0.05) K/mcl Absolute Neutrophils 4.32 (1.80-8.00) K/mcL POC PT (11.9-14.5) POC INR (0.8-1.2) POC VBG pH 7.34 (7.32-7.42) POC VBG pCO2 at Temp 36.7 L (41-51) POC VBG pO2 28 (25-40) POC VBG HCO3 20.0 L (24-28) POC VBG Total CO2 21.0 L (25-29) POC Venous O2 Sat 49.0 (40-70) POC VBG Base Excess -6.0 L (-2-2) VBG Lactic Acid 2.0 (0.5-2) POC Sodium 136 (133-145) POC Potassium 5.5 H (3.3-5.1) POC Chloride 104 (96-108) POC Total CO2 20.0 L (22-30) POC BUN 64 H (6-20) POC Creatinine 16.8 H* (0.6-1.2) POC Glucose 75 (70-105) POC WB Ioniz Calcium 0.99 L (1.16-1.32) Total Bilirubin (0.1-1.0) mg/dL Direct Bilirubin (<0.3) mg/dL AST (<40) U/L ALT (<40) U/L Alkaline Phosphatase (39-117) U/L Ammonia (16-60) umol/L Total Protein (5.9-8.4) gm/dL Albumin (3.2-5.2) gm/dL Globulin (2.2-3.7) gm/dL Procalcitonin (<0.10) ng/mL POC Troponin I (0.00-0.08) 10/16/22 10/16/22 10/16/22 Range/Units 10:08 10:08 10:08 WBC (4.5-11.0) K/mcL RBC (4.63-6.08) M/mcL Hgb (13.7-17.5) g/dL Hct (40.1-51.0) % POC Hct (41-55) MCV (80.0-100.0) fL MCH (26.0-34.0) pg MCHC (31.0-36.0) g/dL RDW (11.5-14.5) % Plt Count (140-440) K/mcL MPV (8.8-12.5) fL Immature Gran % (Auto) (0.0-0.5) % Neut % (Auto) (38.0-78.0) % Lymph % (Auto) (15.5-49.0) % [place] % (Auto) (1.0-12.0) % Eos % (Auto) (0.0-7.0) % Baso % (Auto) (0.0-2.0) % Lymph # (Auto) (1.50-4.80) K/mcL [place] # (Auto) (0.10-0.90) K/mcL Eos # (Auto) (0.00-0.70) K/mcL Baso # (Auto) (0.00-0.30) K/mcL Immature Gran # (0.00-0.05) K/mcl Absolute Neutrophils (1.80-8.00) K/mcL POC PT (11.9-14.5) POC INR (0.8-1.2) POC VBG pH (7.32-7.42) POC VBG pCO2 at Temp (41-51) POC VBG pO2 (25-40) POC VBG HCO3 (24-28) POC VBG Total CO2 (25-29) POC Venous O2 Sat (40-70) POC VBG Base Excess (-2-2) VBG Lactic Acid (0.5-2) POC Sodium (133-145) POC Potassium (3.3-5.1) POC Chloride (96-108) POC Total CO2 (22-30) POC BUN (6-20) POC Creatinine (0.6-1.2) POC Glucose (70-105) POC WB Ioniz Calcium (1.16-1.32) Total Bilirubin 0.8 (0.1-1.0) mg/dL Direct Bilirubin 0.3 H (<0.3) mg/dL AST 26 (<40) U/L ALT 12 (<40) U/L Alkaline Phosphatase 129 H (39-117) U/L Ammonia 145 H (16-60) umol/L Total Protein 7.2 (5.9-8.4) gm/dL Albumin 3.5 (3.2-5.2) gm/dL Globulin 3.7 (2.2-3.7) gm/dL Procalcitonin (<0.10) ng/mL POC Troponin I 0.03 (0.00-0.08) 10/16/22 10/16/22 Range/Units 10:08 10:25 WBC (4.5-11.0) K/mcL RBC (4.63-6.08) M/mcL Hgb (13.7-17.5) g/dL Hct (40.1-51.0) % POC Hct (41-55) MCV (80.0-100.0) fL MCH (26.0-34.0) pg MCHC (31.0-36.0) g/dL RDW (11.5-14.5) % Plt Count (140-440) K/mcL MPV (8.8-12.5) fL Immature Gran % (Auto) (0.0-0.5) % Neut % (Auto) (38.0-78.0) % Lymph % (Auto) (15.5-49.0) % [place] % (Auto) (1.0-12.0) % Eos % (Auto) (0.0-7.0) % Baso % (Auto) (0.0-2.0) % Lymph # (Auto) (1.50-4.80) K/mcL [place] # (Auto) (0.10-0.90) K/mcL Eos # (Auto) (0.00-0.70) K/mcL Baso # (Auto) (0.00-0.30) K/mcL Immature Gran # (0.00-0.05) K/mcl Absolute Neutrophils (1.80-8.00) K/mcL POC PT 19.0 H (11.9-14.5) POC INR 1.6 H (0.8-1.2) POC VBG pH (7.32-7.42) POC VBG pCO2 at Temp (41-51) POC VBG pO2 (25-40) POC VBG HCO3 (24-28) POC VBG Total CO2 (25-29) POC Venous O2 Sat (40-70) POC VBG Base Excess (-2-2) VBG Lactic Acid (0.5-2) POC Sodium (133-145) POC Potassium (3.3-5.1) POC Chloride (96-108) POC Total CO2 (22-30) POC BUN (6-20) POC Creatinine (0.6-1.2) POC Glucose (70-105) POC WB Ioniz Calcium (1.16-1.32) Total Bilirubin (0.1-1.0) mg/dL Direct Bilirubin (<0.3) mg/dL AST (<40) U/L ALT (<40) U/L Alkaline Phosphatase (39-117) U/L Ammonia (16-60) umol/L Total Protein (5.9-8.4) gm/dL Albumin (3.2-5.2) gm/dL Globulin (2.2-3.7) gm/dL Procalcitonin 0.29 H (<0.10) ng/mL POC Troponin I (0.00-0.08) ED POC Tests ED POC Tests: DREW - Influenza A Negative DREW - Influenza B Negative DREW - SARS Antigen Negative Radiology Data Radiology results reviewed: Yes I reviewed the patient's radiology results. Radiology results narrative: Chest x-ray obtained with image reviewed myself, agree with radiologist to rotation CT of the head obtained with image reviewed myself, agree with radiologist interpretation EKG Data EKG #1: EKG attestation: Yes I reviewed and interpreted this EKG. EKG shows normal: sinus rhythm Rate: normal Rhythm: NSR [place]/QRS: normal Heart block present: None ST segment elevation in: None ST segment depression in: None QTc: prolonged QRS morphology: Present normal Interpretation: no acute changes Core Measures AMI Core Measures Followed: Yes Discharge Plan Patient/Caregiver Discharge Instructions Pt seen by AUCTIONEER TOBACCO/PA only: No Clinical Impression: Acute metabolic encephalopathy, Hyperammonemia, Renal failure Patient Disposition: Xfer As Outpt/Obs ([facility]) Condition: Fair Follow up with: Sen Love MD [Primary Care Provider] - Prescriptions: No Action Heidi-Lalo 0.8 mg tablet 1 tab PO QDAY furosemide 80 mg tablet 80 mg PO BID Qty: 60 11RF metoprolol succinate 100 mg tablet extended release 24 hr 100 mg PO QDAY Qty: 30 11RF Rx Instructions: new dose calcium carbonate 200 mg calcium (500 mg) tablet,chewable 200 mg PO .TID with meal Qty: 100 11RF Rx Instructions: Replaces Sevelamar Over the counter valsartan 320 mg tablet 320 mg PO QDAY Qty: 90 3RF Rx Instructions: New dose cyanocobalamin (vitamin B-12) 500 mcg tablet 500 mcg PO QDAY Qty: 100 3RF minoxidil 2.5 mg tablet 2.5 mg PO BID Qty: 100 0RF Rx Instructions: 1. May cause swelling and/or fast Heart Rate 2. Do not take with Alfuzosin and/or Alpostadil (will stop these) trazodone 50 mg tablet 50 mg PO QHS PRN (Reason: insomnia) Qty: 30 0RF gabapentin 100 mg capsule 100 mg PO QHS Qty: 30 0RF cholecalciferol (vitamin D3) 125 mcg (5,000 unit) capsule 125 mcg PO QDAY morphine 15 mg tablet extended release 15 mg PO Q8H PRN (Reason: Pain) Qty: 60 0RF baclofen 10 mg tablet 10 mg PO .COMPLEX Qty: 60 2RF Rx Instructions: 10 mg PO q 8 hrs prn for muscle tightness and/or spasms; codeine sulfate 60 mg tablet 60 mg PO BID PRN (Reason: pain) Qty: 60 0RF omeprazole 20 MG capsule 20 mg PO QAM milk thistle 500 MG capsule 500 mg PO QAM vibegron [Gemtesa] 75 mg tablet 0RF Hold Instructions: Doctor's Order
[2022-10-16 10:49] LABS: Basophils # (Auto) 0.05 K/mcL (0.00-0.30); Basophils % (Auto) 0.8 % (0.0-2.0); Eosinophils # (Auto) 0.21 K/mcL (0.00-0.70); Eosinophils % (Auto) 3.5 % (0.0-7.0); Hematocrit 28.4 % (40.1-51.0); Hemoglobin 9.6 g/dL (13.7-17.5); Lymphocytes # (Auto) 0.76 K/mcL (1.50-4.80); Lymphocytes % (Auto) 12.7 % (15.5-49.0); Mean Cell Volume 101.8 fL (80.0-100.0); Mean Corpuscular HGB Conc 33.8 g/dL (31.0-36.0); Mean Platelet Volume 9.3 fL (8.8-12.5); Monocytes # (Auto) 0.61 K/mcL (0.10-0.90); Monocytes % (Auto) 10.2 % (1.0-12.0); Neutrophils % (Auto) 72.5 % (38.0-78.0); Platelet Count 142 K/mcL (140-440); RBC 2.79 M/mcL (4.63-6.08); Red Cell Distribution Width 16.9 % (11.5-14.5)
--- NOTE | 2022-10-16 10:55 | XRay Report ---
HISTORY: Cough, altered mental status, missed appointment for renal dialysis FINDINGS: The lungs are clear and well expanded. There is no evidence of fluid overload, pneumonia, mass or COPD. The heart size is within normal limits. Aorta is mildly tortuous. There are calcified plaques along the wall of the arch. There are several old healed right lateral rib fractures. Patient has a left shoulder prosthesis. Comparison with the prior exam from 11/11/21 shows the previously seen right lower lobe infiltrate has resolved. IMPRESSION: No acute abnormality Interpreted and Authenticated by: Félix Cornleius 10/16/22
[2022-10-16 11:02] LABS: ALT/SGPT 12 U/L (<40); AST/SGOT 26 U/L (<40); Albumin 3.5 gm/dL (3.2-5.2); Alkaline Phosphatase 129 U/L (39-117); Bilirubin,Direct 0.3 mg/dL (<0.3); Bilirubin,Total 0.8 mg/dL (0.1-1.0); Globulin 3.7 gm/dL (2.2-3.7)
--- NOTE | 2022-10-16 11:03 | Cat Scan Report ---
History: Altered mental status, missed appointment for renal dialysis TECHNIQUE: The brain was imaged without contrast in axial plane at 2.5 mm intervals. Sagittal and coronal reformats were created. The radiation exposure was limited using dose reduction technology. FINDINGS: There are ill-defined zones of decreased attenuation in the white matter predominantly involving the parietal lobes with milder involvement around the frontal horns of lateral ventricles. There is no evidence of an infarct. No hemorrhage or mass effect are present. The ventricles and cisterns are normal and there is very little atrophy except for around the sylvian fissures. No abnormal extra-axial fluid collection is present. Bone windows show no skull lesion. There is opacification of a couple anterior ethmoid air cells and there is also mucous in the inferior recess of the left frontal sinus. IMPRESSION: Mild white matter disease consistent with age-related ischemia or degeneration. No acute abnormality is seen within the brain. Mild sinusitis Dr. Ferreira was called with the report Interpreted and Authenticated by: Félix Cornelius 10/16/22
--- NOTE | 2022-10-16 11:28 | Nephrology Consult Note ---
HPI Date of Consult Consult Date: 10/16/22 Requesting physician: Rylan Ferreira Primary Care Provider: Sen Love MD Consult Narrative Patient Information: Note initiated : 10/16/22 at 11:23 am Patient: Aba Jarvis 62 y/o M admitted on for MISSED DIALYSIS. Chief Complaint: Altered mental status Aba Jarvis is a 62-year-old male with end stage renal disease on hemodialysis, cirrhosis of liver, being admitted on 10/16/22. He presented to [facility] ED via EMS with altered mental status. His mother reported that he missed dialysis x 3. Labs were significant for mild hyperkalemia and metabolic acidosis. Nephrology consultation was requested for end stage renal disease. Chief complaint: Altered mental status Reason for consult: End stage renal disease on hemodialysis cc:: CC: Review of Systems ROS unobtainable: due to mental status PFSH PFSH All Active Problems Biceps tendon tear (Acute) Rotator cuff tear, right (Acute) Shoulder pain, right (Acute) Forearm pain (Acute) Pain in right buttock (Acute) Contusion of forearm, left (Acute) Chest pain (Acute) Bleeding per rectum (Acute) Lower gastrointestinal hemorrhage (Acute) Chest pain (Acute) Left rotator cuff tear (Acute) Acute pain of both shoulders (Acute) Right rotator cuff tear (Acute) Infiltrate noted on imaging study (Acute) Chronic back pain (Chronic) Back pain (Chronic) Hematuria (Chronic) Low back pain radiating to both legs (Chronic) Urinary frequency (Chronic) Dysuria (Chronic) Testicular pain (Chronic) Groin pain (Chronic) Erectile dysfunction (Chronic) History of hernia repair (Chronic) Lumbar disc prolapse with compression radiculopathy (Chronic) Hypertension (Chronic) Cirrhosis of liver (Chronic) Renal impairment (Chronic) Peripheral edema (Chronic) Antalgic gait (Chronic) Anxiety (Chronic) Abdominal pain (Chronic) Chronic kidney disease (Chronic) Cellulitis of right elbow (Chronic) Chronic kidney disease with end stage renal failure on dialysis (Chronic) Refractory nausea and vomiting (Chronic) Hypertensive urgency (Chronic) Drug-induced nausea and vomiting (Chronic) Hypertensive urgency (Chronic) Anemia (Chronic) Hip pain (Chronic) Gastroenteritis (Chronic) Olecranon bursitis, right elbow (Chronic) Hip pain, right (Chronic) Acute pelvic pain (Chronic) Low back pain (Chronic) Wrist pain, right (Chronic) Encounter for hemodialysis for end-stage renal disease (Chronic) Portal hypertension (Chronic) DDD (degenerative disc disease), lumbar (Chronic) Arthritis, lumbar spine (Chronic) Arthritis of both hips (Chronic) Chest pain, atypical (Chronic) ESRF (end stage renal failure) (Chronic) Mitral regurgitation (Chronic) Internal hemorrhoids (Chronic) Diverticulosis of colon without hemorrhage (Chronic) History of surgery (Chronic) Abdominal pain in male (Chronic) Lumbar disc prolapse with compression radiculopathy (Chronic) Initial Medicare annual wellness visit (Chronic) Candidiasis of other urogenital sites (Chronic) Left foot pain (Chronic) Hammer toe of left foot (Chronic) Dysuria-frequency syndrome (Chronic) Pelvic fracture (Chronic) Left flank pain (Chronic) Encounter for pain management (Chronic) Radiculopathy, lumbosacral region (Chronic) Radiculopathy, lumbar region (Chronic) Chronic pain (Chronic) Hepatitis C (Chronic) GERD (gastroesophageal reflux disease) (Chronic) Other chronic nonalcoholic liver disease (Chronic) Kidney disease (Chronic) Liver failure (Chronic) Asthma (Chronic) AV fistula (Chronic) Anemia in chronic kidney disease, on chronic dialysis (Acute) Secondary hyperparathyroidism of renal origin (Acute) Acute urinary retention (Acute) Other sprain of right shoulder joint, initial encounter (Acute) Urinary urgency (Acute) Pelvic pain in male (Acute) Dehydration, moderate (Acute) Acute on chronic anemia (Acute) Abdominal pain (Acute) Anemia (Acute) ESRD (end stage renal disease) on dialysis (Chronic) BPH loc w urin obs/LUTS (Acute) Medical History Acute pelvic pain Antalgic gait Anxiety Arthritis of both hips Arthritis, lumbar spine Asthma AV fistula Back pain Chest pain, atypical Chronic back pain Chronic pain Cirrhosis of liver DDD (degenerative disc disease), lumbar spine, with myelopathy Diverticulosis of colon without hemorrhage Dysuria Encounter for hemodialysis for end-stage renal disease Erectile dysfunction since hernia surgery, 2013 ESRF (end stage renal failure) GERD (gastroesophageal reflux disease) Groin pain Hematuria Hepatitis C Hip pain, right Hypertension Internal hemorrhoids Kidney disease Liver failure Low back pain Low back pain radiating to both legs Lumbar disc prolapse with compression radiculopathy Mitral regurgitation mild Olecranon bursitis, right elbow Other chronic nonalcoholic liver disease Peripheral edema Portal hypertension Radiculopathy, lumbar region Radiculopathy, lumbosacral region Renal impairment Testicular pain Urinary frequency Wrist pain, right Surgical History History of carpal tunnel release History of cholecystectomy History of hernia repair 2013 History of renal stent History of surgery AV Graft: LUE History of surgery TF KENNEY #1 L5-S1, S1 w/o sed 09/07/201610/04 TF KENNEY #3 Right L4-5 w/o sed 09/22/1409/04 LESI #2 L4-5 w/o 09/07/1408/04 TF KENNEY #1, Right L5-S1 w/o sed 08/19/2014 Family History Other No pertinent family history Social History household members: alone lives independently: Yes marital status: single education level: elementary school occupational status: disabled smoking status: Never smoker alcohol intake frequency: 0-2 drinks per day substance use type: marijuana MEDS/ALLERGIES Home Medications and Allergies Home Medications Medication Instructions Recorded Confirmed Type omeprazole 20 mg capsule,delayed 20 mg PO QAM 07/23/15 10/10/22 History release milk thistle 500 mg capsule 500 mg PO QAM 07/08/19 10/10/22 History vitamin B complex-vitamin C-folic 1 tab PO QDAY 07/29/19 10/10/22 History acid 0.8 mg tablet (Heidi-Lalo) cholecalciferol (vitamin D3) 125 125 mcg PO QDAY 06/16/21 10/10/22 History mcg (5,000 unit) capsule furosemide 80 mg tablet 80 mg PO BID cirrhosis, ESRD, 12/12/21 10/10/22 Rx swelling #60 tabs calcium carbonate 200 mg calcium 200 mg PO .TID with meal #100 tabs 12/26/21 10/10/22 Rx (500 mg) chewable tablet metoprolol succinate 100 mg 100 mg PO QDAY HTN and liver 12/26/21 10/10/22 Rx tablet,extended release 24 hr disease #30 tabs valsartan 320 mg tablet 320 mg PO QDAY #90 tabs 01/11/22 10/10/22 Rx cyanocobalamin (vitamin B-12) 500 500 mcg PO QDAY Cirrhosis #100 tabs 02/08/22 10/10/22 Rx mcg tablet minoxidil 2.5 mg tablet 2.5 mg PO BID HYPERTENSION #100 02/08/22 10/10/22 Rx tabs morphine 15 mg tablet,extended 15 mg PO Q8H PRN Pain #60 tabs 07/18/22 10/10/22 Rx release gabapentin 100 mg capsule 100 mg PO QHS #30 caps 09/04/22 10/10/22 Rx trazodone 50 mg tablet 50 mg PO QHS PRN insomnia #30 tabs 09/04/22 10/10/22 Rx baclofen 10 mg tablet 10 mg PO .COMPLEX #60 tabs 10/10/22 10/10/22 Rx codeine sulfate 60 mg tablet 60 mg PO BID PRN pain #60 tabs 10/10/22 10/10/22 Rx Allergies Allergy/AdvReac Type Severity Reaction Status Date / Time acetaminophen [From TYLENOL] Allergy Intermediate HIVES Verified 10/10/22 08:46 hydrocodone Allergy Intermediate Hives Verified 10/10/22 08:46 Penicillins Allergy Intermediate Hives Verified 10/10/22 08:46 ibuprofen [IBUPROFEN] Allergy Mild hives, Verified 10/10/22 08:46 swelling hydrochlorothiazide Allergy Unknown Unknown Verified 10/10/22 08:46 oxycodone Allergy Unknown Unknown Verified 10/10/22 08:46 Sulfa (Sulfonamide Allergy Unknown UNKNOWN Verified 10/10/22 08:46 Antibiotics) [SULFA (SULFONAMIDE ANTIBIOTICS)] Physical Examination Vital Signs Vital signs: Pulse Resp BP Pulse Ox O2 Del Method 80 20 178/83 96 10/16/22 10:42 10/16/22 10:42 10/16/22 10:17 10/16/22 10:42 10/16/22 09:58 General Appearance General appearance: chronically ill EENT EENT: mucous membranes moist and scleral icterus Respiratory Respiratory: clear Cardiovascular Cardiology: edema (trace to 1+), regular rate and regular rhythm Gastrointestinal Gastrointestinal: no tenderness Integumentary Integumentary: warm and dry Neurologic Neurologic: obtunded Musculoskeletal Musculoskeletal: no deformities Results Lab Results Result Diagrams: 10/16/22 10:08 A/P Assessment and plan (1) ESRD (end stage renal disease) on dialysis: Assessment and plan: Aba Jarvis is a 62-year-old male with end stage renal disease on hemodialysis, cirrhosis of liver, being admitted on 10/16/22. He presented to [facility] ED via EMS with altered mental status. His mother reported that he missed dialysis x 3. Labs were significant for mild hyperkalemia and metabolic acidosis. Nephrology consultation was requested for end stage renal disease. End stage renal disease on hemodialysis in [place] on MWF, followed by Dr. Mcconnell. Missed dialysis x 3. Left arm AV fistula. US on 10/12/22: Stenosis of AV fistula. Acute encephalopathy, likely metabolic due to cirrhosis of liver and possible uremia. Hyperkalemia. Metabolic acidosis. Fluid overload. CXR on 10/16/22: No acute abnormality. There is no evidence of fluid overload. Chronic anemia due to ESRD. Hb 9.6. Coagulopathy with INR 1.6, PLT 142. Recommendations/Plan: Hemodialysis today. No heparin for coagulopathy. Status: Chronic Time Spent With Patient Time: Total time spent is greater than 50% in coordination of care (as documented) at patient's floor/unit and/or counseling patient:
[2022-10-16] MEDS ORDERED: ONDANSETRON 4 MG ODT TABLET SL PRN (11:32)
[2022-10-16] MEDS ORDERED: ONDANSETRON 4 MG/2 ML VIAL IV PRN (11:32)
[2022-10-16] MEDS ORDERED: ACETAMINOPHEN 325 MG TABLET PO PRN (11:32)
[2022-10-16] MEDS ORDERED: oxyCODONE/APAP 5/325MG TABLET PO PRN (11:32)
--- NOTE | 2022-10-16 11:52 | Internal Med History&Physical ---
HPI History of Present Illness Patient information: Note initiated : 10/16/22 at 11:39 am Patient: Aba Jarvis 62 y/o M admitted on for MISSED DIALYSIS with AMS Chief complaint: AMS History of present illness: Mr. Jarvis is a 62 year old pleasant male with past medical history cirrhosis of liver, significant for ESRD on HD, MWF via AV fistula left upper extremity brought to emergency room with complaint of confusion disorientation and multiple falls. Patient's mother gave me the history. Patient missed 2 session of dialysis on Sunday and Sunday. He has been confused and disoriented. No reported fever, chills, nausea, vomiting, abdominal pain. Patient had 1 or 2 fall without any injury. He has a small hematoma in the forehead. The reason patient missed his hemodialysis is because he was not feeling well. In the emergency room patient was confused, alert oriented X12. His work-up showed no evidence of infectious process. His CT of the head was unremarkable. LFTs showed normal AST/ALT and total bilirubin but alkaline phosphatase is mildly elevated at 129. His ammonia is 145. He had elevated ammonia in the past. He does not have any known history of liver disease. His INR is 1.6 Nephrology has been consulted and we are admitting patient for urgent hemodialysis Review of Systems All systems: reviewed and no additional remarkable complaints except as stated Review of systems: Except as documented all systems reviewed and negative PFSH PFSH All Active Problems Biceps tendon tear (Acute) Rotator cuff tear, right (Acute) Shoulder pain, right (Acute) Forearm pain (Acute) Pain in right buttock (Acute) Contusion of forearm, left (Acute) Chest pain (Acute) Bleeding per rectum (Acute) Lower gastrointestinal hemorrhage (Acute) Chest pain (Acute) Left rotator cuff tear (Acute) Acute pain of both shoulders (Acute) Right rotator cuff tear (Acute) Infiltrate noted on imaging study (Acute) Chronic back pain (Chronic) Back pain (Chronic) Hematuria (Chronic) Low back pain radiating to both legs (Chronic) Urinary frequency (Chronic) Dysuria (Chronic) Testicular pain (Chronic) Groin pain (Chronic) Erectile dysfunction (Chronic) History of hernia repair (Chronic) Lumbar disc prolapse with compression radiculopathy (Chronic) Hypertension (Chronic) Cirrhosis of liver (Chronic) Renal impairment (Chronic) Peripheral edema (Chronic) Antalgic gait (Chronic) Anxiety (Chronic) Abdominal pain (Chronic) Chronic kidney disease (Chronic) Cellulitis of right elbow (Chronic) Chronic kidney disease with end stage renal failure on dialysis (Chronic) Refractory nausea and vomiting (Chronic) Hypertensive urgency (Chronic) Drug-induced nausea and vomiting (Chronic) Hypertensive urgency (Chronic) Anemia (Chronic) Hip pain (Chronic) Gastroenteritis (Chronic) Olecranon bursitis, right elbow (Chronic) Hip pain, right (Chronic) Acute pelvic pain (Chronic) Low back pain (Chronic) Wrist pain, right (Chronic) Encounter for hemodialysis for end-stage renal disease (Chronic) Portal hypertension (Chronic) DDD (degenerative disc disease), lumbar (Chronic) Arthritis, lumbar spine (Chronic) Arthritis of both hips (Chronic) Chest pain, atypical (Chronic) ESRF (end stage renal failure) (Chronic) Mitral regurgitation (Chronic) Internal hemorrhoids (Chronic) Diverticulosis of colon without hemorrhage (Chronic) History of surgery (Chronic) Abdominal pain in male (Chronic) Lumbar disc prolapse with compression radiculopathy (Chronic) Initial Medicare annual wellness visit (Chronic) Candidiasis of other urogenital sites (Chronic) Left foot pain (Chronic) Hammer toe of left foot (Chronic) Dysuria-frequency syndrome (Chronic) Pelvic fracture (Chronic) Left flank pain (Chronic) Encounter for pain management (Chronic) Radiculopathy, lumbosacral region (Chronic) Radiculopathy, lumbar region (Chronic) Chronic pain (Chronic) Hepatitis C (Chronic) GERD (gastroesophageal reflux disease) (Chronic) Other chronic nonalcoholic liver disease (Chronic) Kidney disease (Chronic) Liver failure (Chronic) Asthma (Chronic) AV fistula (Chronic) Anemia in chronic kidney disease, on chronic dialysis (Acute) Secondary hyperparathyroidism of renal origin (Acute) Acute urinary retention (Acute) Other sprain of right shoulder joint, initial encounter (Acute) Urinary urgency (Acute) Pelvic pain in male (Acute) Dehydration, moderate (Acute) Acute on chronic anemia (Acute) Abdominal pain (Acute) Anemia (Acute) ESRD (end stage renal disease) on dialysis (Chronic) BPH loc w urin obs/LUTS (Acute) Medical History Acute pelvic pain Antalgic gait Anxiety Arthritis of both hips Arthritis, lumbar spine Asthma AV fistula Back pain Chest pain, atypical Chronic back pain Chronic pain Cirrhosis of liver DDD (degenerative disc disease), lumbar spine, with myelopathy Diverticulosis of colon without hemorrhage Dysuria Encounter for hemodialysis for end-stage renal disease Erectile dysfunction since hernia surgery, 2013 ESRF (end stage renal failure) GERD (gastroesophageal reflux disease) Groin pain Hematuria Hepatitis C Hip pain, right Hypertension Internal hemorrhoids Kidney disease Liver failure Low back pain Low back pain radiating to both legs Lumbar disc prolapse with compression radiculopathy Mitral regurgitation mild Olecranon bursitis, right elbow Other chronic nonalcoholic liver disease Peripheral edema Portal hypertension Radiculopathy, lumbar region Radiculopathy, lumbosacral region Renal impairment Testicular pain Urinary frequency Wrist pain, right Surgical History History of carpal tunnel release History of cholecystectomy History of hernia repair 2013 History of renal stent History of surgery AV Graft: LUE History of surgery TF KENNEY #1 L5-S1, S1 w/o sed 09/07/201610/04 TF KENNEY #3 Right L4-5 w/o sed 09/22/1409/04 LESI #2 L4-5 w/o 09/07/1408/04 TF KENNEY #1, Right L5-S1 w/o sed 08/19/2014 Family History Other No pertinent family history Social History household members: alone lives independently: Yes marital status: single education level: elementary school occupational status: disabled smoking status: Never smoker alcohol intake frequency: 0-2 drinks per day substance use type: marijuana MEDS/ALLERGIES Home Medications and Allergies Home Medications Medication Instructions Recorded Confirmed Type omeprazole 20 mg capsule,delayed 20 mg PO QAM 07/23/15 10/10/22 History release milk thistle 500 mg capsule 500 mg PO QAM 07/08/19 10/10/22 History vitamin B complex-vitamin C-folic 1 tab PO QDAY 07/29/19 10/10/22 History acid 0.8 mg tablet (Heidi-Lalo) cholecalciferol (vitamin D3) 125 125 mcg PO QDAY 06/16/21 10/10/22 History mcg (5,000 unit) capsule furosemide 80 mg tablet 80 mg PO BID cirrhosis, ESRD, 12/12/21 10/10/22 Rx swelling #60 tabs calcium carbonate 200 mg calcium 200 mg PO .TID with meal #100 tabs 12/26/21 10/10/22 Rx (500 mg) chewable tablet metoprolol succinate 100 mg 100 mg PO QDAY HTN and liver 12/26/21 10/10/22 Rx tablet,extended release 24 hr disease #30 tabs valsartan 320 mg tablet 320 mg PO QDAY #90 tabs 01/11/22 10/10/22 Rx cyanocobalamin (vitamin B-12) 500 500 mcg PO QDAY Cirrhosis #100 tabs 02/08/22 10/10/22 Rx mcg tablet minoxidil 2.5 mg tablet 2.5 mg PO BID HYPERTENSION #100 02/08/22 10/10/22 Rx tabs morphine 15 mg tablet,extended 15 mg PO Q8H PRN Pain #60 tabs 07/18/22 10/10/22 Rx release gabapentin 100 mg capsule 100 mg PO QHS #30 caps 09/04/22 10/10/22 Rx trazodone 50 mg tablet 50 mg PO QHS PRN insomnia #30 tabs 09/04/22 10/10/22 Rx baclofen 10 mg tablet 10 mg PO .COMPLEX #60 tabs 10/10/22 10/10/22 Rx codeine sulfate 60 mg tablet 60 mg PO BID PRN pain #60 tabs 10/10/22 10/10/22 Rx Allergies Allergy/AdvReac Type Severity Reaction Status Date / Time acetaminophen [From TYLENOL] Allergy Intermediate HIVES Verified 10/10/22 08:46 hydrocodone Allergy Intermediate Hives Verified 10/10/22 08:46 Penicillins Allergy Intermediate Hives Verified 10/10/22 08:46 ibuprofen [IBUPROFEN] Allergy Mild hives, Verified 10/10/22 08:46 swelling hydrochlorothiazide Allergy Unknown Unknown Verified 10/10/22 08:46 oxycodone Allergy Unknown Unknown Verified 10/10/22 08:46 Sulfa (Sulfonamide Allergy Unknown UNKNOWN Verified 10/10/22 08:46 Antibiotics) [SULFA (SULFONAMIDE ANTIBIOTICS)] EXAM Constitutional Vitals: Pulse Resp BP Pulse Ox O2 Del Method 62 12 137/65 96 10/16/22 11:16 10/16/22 11:16 10/16/22 11:16 10/16/22 11:16 10/16/22 09:58 General: Well-developed, somewhat malnourished pleasant obese male with BMI 38. He is alert oriented X2. He seems comfortable. HEENT: Small bruises/hematoma coin size in right forehead., normocephalic.PERRLA, moist mucous membrane. Anicteric sclera Chest: No point tenderness.No point tenderness. Lungs: Fine crackles at bases. No use of accessory muscle respiration. Cardiovascular: Regular rate and rhythm. S1 + S2, 3/6 systolic murmur. No gallop rub. 1+ peripheral edema. No JVD Extremities: AV fistula left forearm with bruit, 1+ bilateral lower extremity peripheral edema. 2+ pulses bilateral equal and symmetric GI: Abdomen soft, nontender, positive bowel sounds. No hepatosplenomegaly. No rebound tenderness. No CVA tenderness. Hollis sign is negative : No Conn catheter. No bladder distention CARDIAC CATH RN: Awake alert oriented x3. Cranial nerves II through XII 12 grossly intact. Motor, sensory intact. DTR 2+ upper lower extremity: Symmetric Skin:Dry. No rash. Lymph: No lymphadenopathy Psychiatric: Normal mood and affect DATA Data Completed and Pending Labs: Labs from last 24 hours 10/16/22 10/16/22 10/16/22 10:25 10:08 10:08 WBC RBC Hgb Hct POC Hct MCV MCH MCHC RDW Plt Count MPV Immature Gran % (Auto) Neut % (Auto) Lymph % (Auto) [place] % (Auto) Eos % (Auto) Baso % (Auto) Lymph # (Auto) [place] # (Auto) Eos # (Auto) Baso # (Auto) Immature Gran # Absolute Neutrophils POC PT 19.0 H POC INR 1.6 H POC VBG pH POC VBG pCO2 at Temp POC VBG pO2 POC VBG HCO3 POC VBG Total CO2 POC Venous O2 Sat POC VBG Base Excess VBG Lactic Acid POC Sodium POC Potassium POC Chloride POC Total CO2 POC BUN POC Creatinine POC Glucose POC WB Ioniz Calcium Total Bilirubin Direct Bilirubin AST ALT Alkaline Phosphatase Ammonia Total Protein Albumin Globulin Procalcitonin 0.29 H POC Troponin I 0.03 10/16/22 10/16/22 10/16/22 10:08 10:08 10:08 WBC 6.0 RBC 2.79 L Hgb 9.6 L Hct 28.4 L POC Hct MCV 101.8 H MCH 34.4 H MCHC 33.8 RDW 16.9 H Plt Count 142 MPV 9.3 Immature Gran % (Auto) 0.3 Neut % (Auto) 72.5 Lymph % (Auto) 12.7 L [place] % (Auto) 10.2 Eos % (Auto) 3.5 Baso % (Auto) 0.8 Lymph # (Auto) 0.76 L [place] # (Auto) 0.61 Eos # (Auto) 0.21 Baso # (Auto) 0.05 Immature Gran # 0.02 Absolute Neutrophils 4.32 POC PT POC INR POC VBG pH POC VBG pCO2 at Temp POC VBG pO2 POC VBG HCO3 POC VBG Total CO2 POC Venous O2 Sat POC VBG Base Excess VBG Lactic Acid POC Sodium POC Potassium POC Chloride POC Total CO2 POC BUN POC Creatinine POC Glucose POC WB Ioniz Calcium Total Bilirubin 0.8 Direct Bilirubin 0.3 H AST 26 ALT 12 Alkaline Phosphatase 129 H Ammonia 145 H Total Protein 7.2 Albumin 3.5 Globulin 3.7 Procalcitonin POC Troponin I 10/16/22 10/16/22 10:06 10:06 WBC RBC Hgb Hct POC Hct 30.0 L MCV MCH MCHC RDW Plt Count MPV Immature Gran % (Auto) Neut % (Auto) Lymph % (Auto) [place] % (Auto) Eos % (Auto) Baso % (Auto) Lymph # (Auto) [place] # (Auto) Eos # (Auto) Baso # (Auto) Immature Gran # Absolute Neutrophils POC PT POC INR POC VBG pH 7.34 POC VBG pCO2 at Temp 36.7 L POC VBG pO2 28 POC VBG HCO3 20.0 L POC VBG Total CO2 21.0 L POC Venous O2 Sat 49.0 POC VBG Base Excess -6.0 L VBG Lactic Acid 2.0 POC Sodium 136 POC Potassium 5.5 H POC Chloride 104 POC Total CO2 20.0 L POC BUN 64 H POC Creatinine 16.8 H* POC Glucose 75 POC WB Ioniz Calcium 0.99 L Total Bilirubin Direct Bilirubin AST ALT Alkaline Phosphatase Ammonia Total Protein Albumin Globulin Procalcitonin POC Troponin I Impressions Impressions: Noncontrast CT scan of the head: IMPRESSION: Mild white matter disease consistent with age-related ischemia or degeneration. No acute abnormality is seen within the brain. Mild sinusitis Chest x-ray: No acute cardiopulmonary process A/P Narrative A/P Narrative: 62 year old pleasant male with past medical history significant for ESRD on HD, MWF via AV fistula left upper extremity who missed 2 session of dialysis on Sunday and Sunday brought to emergency room with complaint of confusion disorientation and multiple falls. #Acute metabolic encephalopathy. #Hepatic encephalopathy with ammonia of 145 -Combination of missed dialysis, uremia and elevated lactulose -CT scan of the head no evidence of acute finding. No evidence of infectious process -Start lactulose and titrate to 23 soft bowel movement today -Urgent hemodialysis today. #History of cirrhosis of liver #Coagulopathy with INR 1.6 -No evidence of bleeding. Treat as above #ESRD, on HD MWF via AV fistula left arm -Missed 2 session of hemodialysis -Treat as above #HTN -Hold blood pressure medication and resume after dialysis #Neuropathy -Hold gabapentin till after dialysis due to altered mental status #Chronic pain -Hold all narcotics till after dialysis and once patient's mental status improved. I gave Percocet 5/325 as needed severe pain DVT PPX: Heparin 5000 twice daily Code Status : Full code Disposition: Inpatient Plan of care discussed with patient's mother Jeannie and RN. Surrogate decision maker: Patient's mother Jeannie Time Spent With Patient Time: Total time spent is greater than 50% in coordination of care (as documented) at patient's floor/unit and/or counseling patient:
[2022-10-16] MEDS ORDERED: CALCIUM CARBONATE 500 MG TAB.CHEW PO SCH (12:00)
--- NOTE | 2022-10-16 12:16 | EKG ---
[facility] Test Date: 2022-10-16 Pat Name: Aba Jarvis Department: ED Room: Gender: Male Signal Tester: TONEY : 1960 Requested By: Rylan Ferreira Order Number: [id number] Miguelito MD: Kaden Cornelius M.D. Measurements Intervals [place] Rate: 86 P: 38 MI: 200 QRS: 0 QRSD: 77 T: 7 QT: 402 QTc: 482 Interpretive Statements Sinus rhythm Borderline prolonged QT interval Electronically Signed On 10-16-2022 12:15:52 PST by Kaden Cornelius M.D. /store/M0/[id number]
--- NOTE | 2022-10-16 13:14 | Ultrasound Report ---
History: Left and right upper quadrant pain, prior TIPS procedure and cholecystectomy FINDINGS: The liver is normal in size but heterogeneous. The capsules mildly lobulated due to cirrhosis. There is no apparent malignant transformation. There is a TIPS stent extending from the main portal vein to the hepatic vein. The stent is patent. Approximately has a peak systolic flow velocity 159 cm/s, mid segment 145 and distal segment 108 cm/s. Flow velocity in main portal vein is 18 cm/s. No ascites is present. There is a cyst in the head of the pancreas which measures 2.2 x 2.2 x 2.6 cm. This was seen on prior CT scans and has not enlarged. Pancreatic duct is dilated and measures 4 mm. There is no evidence of acute pancreatitis. The caliber of the duct has enlarged one or 2 mm since 12/07/21. The distal body and tail of the pancreas is obscured by overlying bowel gas. IMPRESSION: Stable cirrhosis Patent TIPS stent No evidence of malignancy Nonspecific dilatation of the pancreatic duct. Dr. Ferreira was called with the results Interpreted and Authenticated by: Félix Cornelius 10/16/22
[2022-10-16] MEDS: LACTULOSE 20 GM/30 ML ORAL.SOL PO SCH ×2 (15:14→17:43)
[2022-10-16] MEDS: 0.9 % SODIUM CHLORIDE 10 ML SYRINGE IV SCH ×3 (15:15→23:26)
[2022-10-16] MEDS ORDERED: LORazepam 2 MG/ML VIAL IV ONE (17:07)
[2022-10-16] MEDS ORDERED: CALCIUM GLUCONATE 4.65 MEQ in DEXTROSE 5% IN WATER 50 ML IV ONE (17:07)
[2022-10-16] MEDS ORDERED: CALCIUM GLUCONATE 4.65 MEQ/10 ML VIAL ONE (18:00)
[2022-10-16] MEDS ORDERED: MINOXIDIL 2.5 MG TABLET PO SCH (21:00)
[2022-10-16] MEDS: DOCUSATE SODIUM 100 MG CAPSULE PO SCH (21:33)
[2022-10-16] MEDS: SENNOSIDES 1 TABLET PO SCH (21:33)
[2022-10-16] MEDS: HEPARIN 5,000 UNIT/ML VIAL SQ SCH (21:37)
[2022-10-16] MEDS ORDERED: OLANZapine 10 MG VIAL IM PRN (21:49)
[2022-10-16] MEDS ORDERED: LORazepam 2 MG/ML VIAL IV PRN (21:51)
[2022-10-16 22:42] LABS: Alcohol, Blood < 10.0 mg/dL; Alcohol,Blood < 0.010 gm/dL (<0.010)
[2022-10-16] MEDS: FOLIC ACID 1 MG TABLET PO SCH (23:26)
[2022-10-16] MEDS: MULTIVIT,THER IRON,CA,FA & MIN 1 TABLET PO SCH (23:26)
[2022-10-16] MEDS: THIAMINE 100 MG TABLET PO SCH (23:26)
[2022-10-17] MEDS: LACTULOSE 20 GM/30 ML ORAL.SOL PO SCH ×6 (00:17→23:31)
[2022-10-17] MEDS ORDERED: LORazepam 2 MG/ML VIAL ONE (04:35)
[2022-10-17] MEDS: 0.9 % SODIUM CHLORIDE 10 ML SYRINGE IV SCH ×4 (04:45→20:34)
[2022-10-17 07:26] LABS: Basophils # (Auto) 0.04 K/mcL (0.00-0.30); Eosinophils # (Auto) 0.28 K/mcL (0.00-0.70); Eosinophils % (Auto) 7.3 % (0.0-7.0); Hematocrit 25.9 % (40.1-51.0); Hemoglobin 8.5 g/dL (13.7-17.5); Lymphocytes # (Auto) 0.52 K/mcL (1.50-4.80); Lymphocytes % (Auto) 13.6 % (15.5-49.0); Mean Cell Volume 103.6 fL (80.0-100.0); Mean Corpuscular HGB Conc 32.8 g/dL (31.0-36.0); Mean Platelet Volume 9.4 fL (8.8-12.5); Monocytes # (Auto) 0.63 K/mcL (0.10-0.90); Monocytes % (Auto) 16.5 % (1.0-12.0); Neutrophils % (Auto) 61.3 % (38.0-78.0); Platelet Count 93 K/mcL (140-440); WBC 3.8 K/mcL (4.5-11.0)
[2022-10-17 08:03] LABS: ALT/SGPT 10 U/L (<40); AST/SGOT 23 U/L (<40); Albumin 2.8 gm/dL (3.2-5.2); Albumin/Globulin Ratio 0.9 (1.0-2.3); Alkaline Phosphatase 104 U/L (39-117); Bilirubin,Total 0.8 mg/dL (0.1-1.0); Blood Urea Nitrogen 32 mg/dL (6-20); Calcium 8.4 mg/dL (8.6-10.4); Carbon Dioxide 24 mmol/L (22-30); Chloride 97 mmol/L (96-108); Globulin 3.1 gm/dL (2.2-3.7); Glomerular Filtration Rate 5; Glucose 69 mg/dL (70-105)
--- NOTE | 2022-10-17 08:19 | Nephrology Progress Note ---
SUBJECTIVE Subjective Patient information: Note initiated : 10/17/22 at 8:17 am Patient: Aba Jarvis 62 y/o M admitted on 10/16/22 for MISSED DIALYSIS. Chief Complaint: Altered mental status Pertinent ROS: Sleeping Weakness Constitutional Vitals: Vital Signs Temp Pulse Resp BP Pulse Ox O2 Del Method 98.2 F 62 16 156/74 100 10/17/22 07:26 10/17/22 07:26 10/17/22 07:26 10/17/22 07:26 10/17/22 07:26 10/17/22 04:51 Period Temp Pulse Resp BP Sys/Moeller Pulse Ox O2 Del Method O2 Flow Rate Last 24 Hr 97.4 F-98.9 F 50-104 11-20 133-210/62-122 94-100 Room Air-Room Air Intake and Output 10/16/22 10/17/22 10/17/22 19:59 03:59 11:59 Intake Total 60 200 Output Total 1101 226 Balance -1041 -226 200 Weight 240 lb 8 oz Intake & Output: Intake & Output 10/16/22 10/17/22 10/17/22 19:59 03:59 11:59 Intake Total 60 200 Output Total 1101 226 Balance -1041 -226 200 Weight 240 lb 8 oz Intake: IV 60 Calcium Gluconate 4.65 Meq In 60 Dextrose 5% in Water 50 ml @ 100 mls/hr IV ONCE ONE Rx#: [id number] Oral 200 Output: # of times incontinent of urine 1 1 Stool 225 Hemodialysis UF 1100 Other: Stool Size Moderate Moderate Stool Color Brown Brown Stool Consistency Liquid Liquid Watery Watery Loose Loose # Voids 1 # Bowel Movements 1 # of times incontinent of 1 Bowels General appearance: no acute distress Head Head exam: Present normal inspection Eye Eye exam: Present normal appearance ENT ENT exam: Present mucous membranes moist Respiratory Respiratory exam: Absent respiratory distress Cardiovascular Cardiovascular exam: Present normal rate and rhythm GI/Abdominal GI/Abdominal exam: Present soft; Absent tenderness Extremities Exam Extremities exam: Absent joint swelling or pedal edema Neurological Exam Neurological exam: Present altered Skin Skin exam: Present warm; Absent rash A/P Assessment and plan (1) ESRD (end stage renal disease) on dialysis: Assessment and plan: Aba Jarvis is a 62-year-old male with end stage renal disease on hemodialysis, cirrhosis of liver, being admitted on 10/16/22. He presented to [facility] ED via EMS with altered mental status. His mother reported that he missed dialysis x 3. Labs were significant for mild hyperkalemia and metabolic acidosis. Nephrology consultation was requested for end stage renal disease. End stage renal disease on hemodialysis in [place] on MWF, followed by Dr. Mcconnell. Missed dialysis x 3. Left arm AV fistula. US on 10/12/22: Stenosis of AV fistula. Acute encephalopathy, likely metabolic due to cirrhosis of liver and alcohol withdrawal. Hyperkalemia, resolved. Metabolic acidosis, resolved. No significant fluid overload. CXR on 10/16/22: No acute abnormality. There is no evidence of fluid overload. Chronic anemia due to ESRD. Hb 8.5. Coagulopathy with INR 1.6, PLT 93. Progress: Hemodialysis on 07/17/22 for 3 hours with 1100 ml net UF, no heparin for coagulopathy. Recommendations/Plan: Next hemodialysis on Sunday. Status: Chronic Time Spent With Patient Time: Total time spent is greater than 50% in coordination of care (as documented) at patient's floor/unit and/or counseling patient:
[2022-10-17] MEDS ORDERED: METOPROLOL SUCCINATE 50 MG TAB.XL.24H PO SCH (09:00)
[2022-10-17] MEDS ORDERED: CYANOCOBALAMIN (VITAMIN B-12) 500 MCG TABLET PO SCH (09:00)
[2022-10-17] MEDS ORDERED: LORazepam 2 MG/ML VIAL IV ONE (10:28)
[2022-10-17] MEDS: DOCUSATE SODIUM 100 MG CAPSULE PO SCH ×2 (10:36→20:31)
[2022-10-17] MEDS: MULTIVIT,THER IRON,CA,FA & MIN 1 TABLET PO SCH (10:36)
[2022-10-17] MEDS: OMEPRAZOLE 20 MG CAPSULE PO SCH (10:36)
[2022-10-17] MEDS: THIAMINE 100 MG TABLET PO SCH (10:36)
[2022-10-17] MEDS: FOLIC ACID 1 MG TABLET PO SCH (10:36)
[2022-10-17] MEDS: HEPARIN 5,000 UNIT/ML VIAL SQ SCH (12:04)
--- NOTE | 2022-10-17 12:11 | Internal Med Progress Note ---
SUBJECTIVE Subjective Patient information: Note initiated : 10/17/22 at 12:10 pm Service Date, if different from initiated Date: [] Patient: Aba Jarvis 62 y/o M admitted on 10/16/22 for MISSED DIALYSIS. Chief Complaint: [] Principal diagnosis: Altered mental status Interval history: Patient seen examined, has been confused post HD, having twitches/ spasms This AM seems ok, aoox2-3, was intersted in having lunch Admits to weakness, but no other acute complaints Pertinent ROS: Denies headache, dizziness Denies chest pain, palpitations Denies cough or shortness of breath Denies abdominal pain, nausea or vomiting. Additional PMFSH (Level 3 Only): reviewed not contributory to present illness Constitutional Vitals: Vital Signs Temp Pulse Resp BP Pulse Ox O2 Del Method 98.8 F 80 16 197/94 100 10/17/22 11:51 10/17/22 11:51 10/17/22 11:51 10/17/22 11:51 10/17/22 11:51 10/17/22 11:51 Period Temp Pulse Resp BP Sys/Moeller Pulse Ox O2 Del Method O2 Flow Rate Last 24 Hr 97.4 F-98.9 F 50-104 12-18 133-210/62-122 97-100 Room Air-Room Air Intake and Output 10/17/22 10/17/22 10/17/22 03:59 11:59 19:59 Intake Total 200 Output Total 226 Balance -226 200 Intake & Output: Intake & Output 10/17/22 10/17/22 10/17/22 03:59 11:59 19:59 Intake Total 200 Output Total 226 Balance -226 200 Intake: Oral 200 Output: # of times incontinent of urine 1 Stool 225 Other: Stool Size Moderate Moderate Stool Color Brown Brown Stool Consistency Liquid Liquid Watery Watery Loose Loose # Bowel Movements 1 # of times incontinent of 1 Bowels Exam: Constitutional; Afebrile, cooperative, alert, not in distress. Eyes- No icterus, , No periorbital swelling Ears- Ext ear normal, hearing normal to conversation. Neck- Midline trachea, supple Respiratory system: Air Entry equal on both sides, No crackles or wheezing, no rhonchi. CVS- Rate rhythm regular, S1,S2 heard, no gallop, no rub.systolic murmur present Abdomen- Soft nontender abdomen, no organomegaly, no tenderness, no guarding or rigidity, [employer]OR- AOOx2-3, moving all extremities, no gross focal deficit noted. OBJ DATA Labs CBC & Chem 7: 10/17/22 06:20 10/17/22 06:21 Labs: Abnormal Lab Results 10/17/22 10/17/22 10/16/22 06:21 06:20 10:25 WBC 3.8 L RBC 2.50 L Hgb 8.5 L Hct 25.9 L POC Hct MCV 103.6 H MCH RDW 17.0 H Plt Count 93 L Lymph % (Auto) 13.6 L [place] % (Auto) 16.5 H Eos % (Auto) 7.3 H Lymph # (Auto) 0.52 L POC PT 19.0 H POC INR 1.6 H POC VBG pCO2 at Temp POC VBG HCO3 POC VBG Total CO2 POC VBG Base Excess POC Potassium POC Total CO2 POC BUN BUN 32 H Creatinine 10.1 H* POC Creatinine Glucose 69 L Calcium 8.4 L POC WB Ioniz Calcium Direct Bilirubin Alkaline Phosphatase Ammonia Albumin 2.8 L Albumin/Globulin Ratio 0.9 L Procalcitonin 10/16/22 10/16/22 10/16/22 10:08 10:08 10:08 WBC RBC Hgb Hct POC Hct MCV MCH RDW Plt Count Lymph % (Auto) [place] % (Auto) Eos % (Auto) Lymph # (Auto) POC PT POC INR POC VBG pCO2 at Temp POC VBG HCO3 POC VBG Total CO2 POC VBG Base Excess POC Potassium POC Total CO2 POC BUN BUN Creatinine POC Creatinine Glucose Calcium POC WB Ioniz Calcium Direct Bilirubin 0.3 H Alkaline Phosphatase 129 H Ammonia 145 H Albumin Albumin/Globulin Ratio Procalcitonin 0.29 H 10/16/22 10/16/22 10/16/22 10:08 10:06 10:06 WBC RBC 2.79 L Hgb 9.6 L Hct 28.4 L POC Hct 30.0 L MCV 101.8 H MCH 34.4 H RDW 16.9 H Plt Count Lymph % (Auto) 12.7 L [place] % (Auto) Eos % (Auto) Lymph # (Auto) 0.76 L POC PT POC INR POC VBG pCO2 at Temp 36.7 L POC VBG HCO3 20.0 L POC VBG Total CO2 21.0 L POC VBG Base Excess -6.0 L POC Potassium 5.5 H POC Total CO2 20.0 L POC BUN 64 H BUN Creatinine POC Creatinine 16.8 H* Glucose Calcium POC WB Ioniz Calcium 0.99 L Direct Bilirubin Alkaline Phosphatase Ammonia Albumin Albumin/Globulin Ratio Procalcitonin Meds: Medications Acetaminophen (Acetaminophen 325 Mg Tablet) 650 mg PO Q6HP PRN; Protocol PRN Reason: Per Pain Protocol/Fever > 101 Docusate Sodium (Docusate Sodium 100 Mg Capsule) 100 mg PO BID [facility] Last Admin: 10/17/22 10:36 Dose: 100 mg Folic Acid (Folic Acid 1 Mg Tablet) 1 mg PO DAILY [facility] Last Admin: 10/17/22 10:36 Dose: 1 mg Hydromorphone HCl (Hydromorphone 2 Mg Tablet) 2 mg PO Q4-6HP PRN; Protocol PRN Reason: Per Pain Protocol Iron Carb/Multivit/Scrap Yard Worker/Folic Acid (Multivit,Ther Iron,Ca,Fa & Min 1 Tablet) 1 tab PO DAILY [facility] Last Admin: 10/17/22 10:36 Dose: 1 tab Lactulose (Lactulose 20 Gm/30 Ml Oral.Lissa) 30 gm PO Q6 [facility] Last Admin: 10/17/22 12:06 Dose: 30 gm Omeprazole (Omeprazole 20 Mg Capsule) 20 mg PO QAM [facility] Last Admin: 10/17/22 10:36 Dose: 20 mg Ondansetron HCl (Ondansetron 4 Mg/2 Ml Vial) 4 mg IV Q6HP PRN PRN Reason: Nausea And Vomiting Ondansetron HCl (Ondansetron 4 Mg Odt Tablet) 4 mg SL Q6HP PRN PRN Reason: Nausea And Vomiting Senna (Sennosides 1 Tablet) 2 tab PO HS [facility] Last Admin: 10/16/22 21:33 Dose: Not Given Sodium Chloride (0.9 % Sodium Chloride 10 Ml Syringe) 10 ml IV Q8 [facility] Last Admin: 10/17/22 04:45 Dose: 10 ml Thiamine HCl (Thiamine 100 Mg Tablet) 100 mg PO QDAY [facility] Last Admin: 10/17/22 10:36 Dose: 100 mg A/P Narrative A/P Narrative: [facility] NAME: Aba Jarvis Antonio [address] [place] [address] : 1960 [address] Service Date:10/16/22 Admit Date: [place] [address] Report # [id number] Edi Patiño M.D. MR #: [id number] Internal Med History&Physical Signed HPI History of Present Illness Patient information: Note initiated : 10/16/22 at 11:39 am Patient: Aba Jarvis 62 y/o M admitted on for MISSED DIALYSIS with AMS Chief complaint: AMS History of present illness: Mr. Jarvis is a 62 year old pleasant male with past medical history cirrhosis of liver, significant for ESRD on HD, MWF via AV fistula left upper extremity brought to emergency room with complaint of confusion disorientation and multiple falls. Patient's mother gave me the history. Patient missed 2 session of dialysis on Sunday and Sunday. He has been confused and disoriented. No reported fever, chills, nausea, vomiting, abdominal pain. Patient had 1 or 2 f all without any injury. He has a small hematoma in the forehead. The reason patient missed his hemodialysis is because he was not feeling well. In the emergency room patient was confused, alert oriented X12. His work-up showed no evidence of infectious process. His CT of the head was unremarkable. LFTs showed normal AST/ALT and total bilirubin but alkaline phosphatase is mildly elevated at 129. His ammonia is 145. He had elevated ammonia in the past. He does not have any known history of liver disease. His INR is 1.6 Nephrology has been consulted and we are admitting patient for urgent hemodialysis Review of Systems All systems: reviewed and no additional remarkable complaints except as stated Review of systems: Except as documented all systems reviewed and negative PFSH PFSH All Active Problems Biceps tendon tear (Acute) Rotator cuff tear, right (Acute) Shoulder pain, right (Acute) Forearm pain (Acute) Pain in right buttock (Acute) Contusion of forearm, left (Acute) Chest pain (Acute) Bleeding per rectum (Acute) Lower gastrointestinal hemorrhage (Acute) Chest pain (Acute) Left rotator cuff tear (Acute) Acute pain of both shoulders (Acute) Right rotator cuff tear (Acute) Infiltrate noted on imaging study (Acute) Chronic back pain (Chronic) Back pain (Chronic) Hematuria (Chronic) Low back pain radiating to both legs (Chronic) Urinary frequency (Chronic) Dysuria (Chronic) Testicular pain (Chronic) Groin pain (Chronic) Erectile dysfunction (Chronic) History of hernia repair (Chronic) Lumbar disc prolapse with compression radiculopathy (Chronic) Hypertension (Chronic) Cirrhosis of liver (Chronic) Renal impairment (Chronic) Peripheral edema (Chronic) Antalgic gait (Chronic) Anxiety (Chronic) Abdominal pain (Chronic) Chronic kidney disease (Chronic) Cellulitis of right elbow (Chronic) Chronic kidney disease with end stage renal failure on dialysis (Chronic) Refractory nausea and vomiting (Chronic) Hypertensive urgency (Chronic) Drug-induced nausea and vomiting (Chronic) Hypertensive urgency (Chronic) Anemia (Chronic) Hip pain (Chronic) Gastroenteritis (Chronic) Olecranon bursitis, right elbow (Chronic) Hip pain, right (Chronic) Acute pelvic pain (Chronic) Low back pain (Chronic) Wrist pain, right (Chronic) Encounter for hemodialysis for end-stage renal disease (Chronic) Portal hypertension (Chronic) DDD (degenerative disc disease), lumbar (Chronic) Arthritis, lumbar spine (Chronic) Arthritis of both hips (Chronic) Chest pain, atypical (Chronic) ESRF (end stage renal failure) (Chronic) Mitral regurgitation (Chronic) Internal hemorrhoids (Chronic) Diverticulosis of colon without hemorrhage (Chronic) History of surgery (Chronic) Abdominal pain in male (Chronic) Lumbar disc prolapse with compression radiculopathy (Chronic) Initial Medicare annual wellness visit (Chronic) Candidiasis of other urogenital sites (Chronic) Left foot pain (Chronic) Hammer toe of left foot (Chronic) Dysuria-frequency syndrome (Chronic) Pelvic fracture (Chronic) Left flank pain (Chronic) Encounter for pain management (Chronic) Radiculopathy, lumbosacral region (Chronic) Radiculopathy, lumbar region (Chronic) Chronic pain (Chronic) Hepatitis C (Chronic) GERD (gastroesophageal reflux disease) (Chronic) Other chronic nonalcoholic liver disease (Chronic) Kidney disease (Chronic) Liver failure (Chronic) Asthma (Chronic) AV fistula (Chronic) Anemia in chronic kidney disease, on chronic dialysis (Acute) Secondary hyperparathyroidism of renal origin (Acute) Acute urinary retention (Acute) Other sprain of right shoulder joint, initial encounter (Acute) Urinary urgency (Acute) Pelvic pain in male (Acute) Dehydration, moderate (Acute) Acute on chronic anemia (Acute) Abdominal pain (Acute) Anemia (Acute) ESRD (end stage renal disease) on dialysis (Chronic) BPH loc w urin obs/LUTS (Acute) Medical History Acute pelvic pain Antalgic gait Anxiety Arthritis of both hips Arthritis, lumbar spine Asthma AV fistula Back pain Chest pain, atypical Chronic back pain Chronic pain Cirrhosis of liver DDD (degenerative disc disease), lumbar spine, with myelopathyDiverticulosis of colon without hemorrhage Dysuria Encounter for hemodialysis for end-stage renal disease Erectile dysfunction since hernia surgery, 2013ESRF (end stage renal failure) GERD (gastroesophageal reflux disease) Groin pain Hematuria Hepatitis C Hip pain, right Hypertension Internal hemorrhoids Kidney disease Liver failure Low back pain Low back pain radiating to both legs Lumbar disc prolapse with compression radiculopathy Mitral regurgitation mildOlecranon bursitis, right elbow Other chronic nonalcoholic liver disease Peripheral edema Portal hypertension Radiculopathy, lumbar region Radiculopathy, lumbosacral region Renal impairment Testicular pain Urinary frequency Wrist pain, right Surgical History History of carpal tunnel release History of cholecystectomy History of hernia repair 2013History of renal stent History of surgery AV Graft: LUEHistory of surgery TF KENNEY #1 L5-S1, S1 w/o sed 09/07/201610/04 TF KENNEY #3 Right L4-5 w/o sed 09/22/1409/04 LESI #2 L4-5 w/o 09/07/1408/04 TF KENNEY #1, Right L5-S1 w/o sed 08/19/2014 Family History Other No pertinent family history Social History household members: alone lives independently: Yes marital status: single education level: elementary school occupational status: disabled smoking status: Never smoker alcohol intake frequency: 0-2 drinks per day substance use type: marijuana MEDS/ALLERGIES Home Medications and Allergies Home Medications Medication Instructions Recorded Confirmed Type omeprazole 20 mg capsule,delayed 20 mg PO QAM 07/23/15 2 History release milk thistle 500 mg capsule 500 mg PO QAM 07/08/19 10/10/22 His tory vitamin B complex-vitamin C-folic 1 tab PO QDAY 07/29/19 History acid 0.8 mg tablet (Heidi-Lalo) A cholecalciferol (vitamin D3) 125 125 mcg PO QDAY 06/16/21 2 History mcg (5,000 unit) capsule furosemide 80 mg tablet 80 mg PO BID cirrhosis, ESRD, 12/12/21 Rx swelling #60 tabs calcium carbonate 200 mg calcium 200 mg PO .TID with meal #100 tabs 12/26/21 10/10/22 Rx (500 mg) chewable tablet metoprolol succinate 100 mg 100 mg PO QDAY HTN and liver 12/26/21 Rx tablet,extended release 24 hr disease #30 tabs valsartan 320 mg tablet 320 mg PO QDAY #90 tabs 01/11/22 10/10/22 Rx cyanocobalamin (vitamin B-12) 500 500 mcg PO QDAY Cirrhosis #100 tabs 02/08/22 10/10/22 Rx mcg tablet minoxidil 2.5 mg tablet 2.5 mg PO BID HYPERTENSION #100 02/08/2209/22 Rx tabs morphine 15 mg tablet,extended 15 mg PO Q8H PRN Pain #60 tabs 07/18/22 10/10/22 Rx release gabapentin 100 mg capsule 100 mg PO QHS #30 caps 09/04/22 10/10/22 Rx trazodone 50 mg tablet 50 mg PO QHS PRN insomnia #30 tabs 09/04/22 Rx baclofen 10 mg tablet 10 mg PO .COMPLEX #60 tabs 10/10/22 10/10/22 Rx codeine sulfate 60 mg tablet 60 mg PO BID PRN pain #60 tabs 10/10/22 10/10/22 Rx Allergies Allergy/AdvReac Type Severity Reaction StatusB Date / Time acetaminophen [From TYLENOL] Allergy Intermediate HIVES Verified 10/10/22 08:46 hydrocodone Allergy Intermediate Hives Verified 10/10/22 08:46 Penicillins Allergy Intermediate Hives Verified 10/10/22 08:46 ibuprofen [IBUPROFEN] Allergy Mild hives, Verified 10/10/22 08:46 swelling hydrochlorothiazide Allergy Unknown Unknown Verified 10/10/22 08:46 oxycodone Allergy Unknown Unknown Verified 10/10/22 08:46 Sulfa (Sulfonamide Allergy Unknown UNKNOWN Verified 10/10/22 08:46 Antibiotics) [SULFA (SULFONAMIDE ANTIBIOTICS)] EXAM Constitutional Vitals: Pulse Resp BP Pulse Ox O2 Del Method 62 12 137/65 96 10/16/22 11:16 10/16/22 11:16 10/16/22 11:16 10/16/22 11:16 10/16/22 09:58 General: Well-developed, somewhat malnourished pleasant obese male with BMI 38. He is alert oriented X2. He seems comfortable. HEENT: Small bruises/hematoma coin size in right forehead., normocephalic.PERRLA, moist mucous membrane. Anicteric sclera Chest: No point tenderness.No point tenderness. Lungs: Fine crackles at bases. No use of accessory muscle respiration. Cardiovascular: Regular rate and rhythm. S1 + S2, 3/6 systolic murmur. No gallop rub. 1+ peripheral edema. No JVD Extremities: AV fistula left forearm with bruit, 1+ bilateral lower extremity pe ripheral edema. 2+ pulses bilateral equal and symmetric GI: Abdomen soft, nontender, positive bowel sounds. No hepatosplenomegaly. No rebound tenderness. No CVA tenderness. Hollis sign is negative : No Conn catheter. No bladder distention [employer]ING SUPERVISOR: Awake alert oriented x3. Cranial nerves II through XII 12 grossly intact. Motor, sensory intact. DTR 2+ upper lower extremity: Symmetric Skin:Dry. No rash. Lymph: No lymphadenopathy Psychiatric: Normal mood and affect DATA Data Completed and Pending Labs: Labs from last 24 hours 10/16/22 10/16/22 10/16/22 10:25 10:08 10:08 WBC RBC Hgb Hct POC Hct MCV MCH MCHC RDW Plt Count MPV Immature Gran % (Auto) Neut % (Auto) Lymph % (Auto) [place] % (Auto) Eos % (Auto) Baso % (Auto) Lymph # (Auto) [place] # (Auto) Eos # (Auto) Baso # (Auto) Immature Gran # Absolute Neutrophils POC PT 19.0 H POC INR 1.6 H POC VBG pH POC VBG pCO2 at Temp POC VBG pO2 POC VBG HCO3 POC VBG Total CO2 POC Venous O2 Sat POC VBG Base Excess VBG Lactic Acid POC Sodium POC Potassium POC Chloride POC Total CO2 POC BUN POC Creatinine POC Glucose POC WB Ioniz Calcium Total Bilirubin Direct Bilirubin AST ALT Alkaline Phosphatase Ammonia Total Protein Albumin Globulin Procalcitonin 0.29 H POC Troponin I 0.03 10/16/22 10/16/22 10/16/22 10:08 10:08 10:08 WBC 6.0 RBC 2.79 L Hgb 9.6 L Hct 28.4 L POC Hct MCV 101.8 H MCH 34.4 H MCHC 33.8 RDW 16.9 H Plt Count 142 MPV 9.3 Immature Gran % (Auto) 0.3 Neut % (Auto) 72.5 Lymph % (Auto) 12.7 L [place] % (Auto) 10.2 Eos % (Auto) 3.5 Baso % (Auto)B 0.8 Lymph # (Auto) 0.76 L [place] # (Auto) 0.61 Eos # (Auto) 0.21 Baso # (Auto) 0.05 Immature Gran # 0.02 Absolute Neutrophils 4.32 D POC PT POC INR POC VBG pH POC VBG pCO2 at Temp POC VBG pO2 POC VBG HCO3 D POC VBG Total CO2 POC Venous O2 Sat POC VBG Base Excess VBG Lactic Acid POC Sodium POC Potassium POC Chloride POC Total CO2 POC BUN POC Creatinine POC Glucose POC WB Ioniz Calcium Total Bilirubin 0.8 Direct Bilirubin 0.3 H AST 26 ALT 12 Alkaline Phosphatase 129 H Ammonia 145 H Total Protein 7.2 Albumin 3.5 Globulin 3.7 Procalcitonin POC Troponin I 10/16/22 10/16/22 10:06 10:06 WBC RBC Hgb Hct POC Hct 30.0 L MCV MCH MCHC RDW Plt Count MPV Immature Gran % (Auto) Neut % (Auto) Lymph % (Auto) [place] % (Auto) D Eos % (Auto) Baso % (Auto) Lymph # (Auto) [place] # (Auto) D Eos # (Auto) Baso # (Auto) Immature Gran # Absolute Neutrophils POC PT POC INR POC VBG pH 7.34 POC VBG pCO2 at Temp 36.7 L POC VBG pO2 28 POC VBG HCO3 20.0 L POC VBG Total CO2 21.0 L POC Venous O2 Sat 49.0 POC VBG Base Excess -6.0 L VBG Lactic Acid 2.0 POC Sodium 136 POC Potassium 5.5 H POC Chloride 104 POC Total CO2 20.0 L POC BUN 64 H POC Creatinine 16.8 H* POC Glucose 75B POC WB Ioniz Calcium 0.99 L Total Bilirubin Direct Bilirubin AST ALT Alkaline Phosphatase Ammonia Total Protein Albumin Globulin B Procalcitonin POC Troponin I Impressions Impressions: Noncontrast CT scan of the head: IMPRESSION: Mild white matter disease consistent with age-related ischemia or degeneration. No acute abnormality is seen within the brain. Mild sinusitis Chest x-ray: No acute cardiopulmonary process A/P Narrative A/P Narrative: 62 year old pleasant male with past medical history significant for ESRD on HD, MWF via AV fistula left upper extremity who missed 2 session of dialysis on Sunday and Sunday brought to emergency room with complaint of confusion disorientation and multiple falls. #Acute metabolic encephalopathy. #Hepatic encephalopathy with ammonia of 145, repeat level in AM -Combination of missed dialysis, uremia and elevated lactulose -CT scan of the head no evidence of acute finding. -Start lactulose and titrate to 23 soft bowel movement today, had 2 BM today -HD done yesterday, will have another session tomorrow #History of cirrhosis of liver #Coagulopathy with INR 1.6 -No evidence of bleeding. Treat as above #ESRD, on HD MWF via AV fistula left arm -Missed 2 session of hemodialysis -HD per nephrology # HTN -resume home bp meds, monmitor bp -IV hydralazine prn #Neuropathy -Hold gabapentin till after dialysis due to altered mental status #Chronic pain -Hold all narcotics till after dialysis and once patient's mental status improved. I gave Percocet 5/325 as needed severe pain DVT PPX: SCD,l pt on dual antiplatlet agents Code Status : Full code Time Spent With Patient Time: Total time spent is greater than 50% in coordination of care (as documented) at patient's floor/unit and/or counseling patient: QUALITY VTE Deep Vein Thrombosis/Pulmonary Embolism Present on Admission: No
[2022-10-17] MEDS ORDERED: traZODone HCL 50 MG TABLET PO PRN (12:13)
[2022-10-17] MEDS ORDERED: BACLOFEN 10 MG TABLET PO PRN (12:13)
[2022-10-17] MEDS: SEVELAMER 800 MG TABLET PO SCH ×2 (14:08→16:55)
[2022-10-17 16:20] LABS: Phosphorous 5.5 mg/dL (2.5-4.5)
[2022-10-17] MEDS: HYDROmorphone 2 MG TABLET PO PRN (16:55)
[2022-10-17] MEDS: hydrALAZINE 20 MG/ML VIAL IV PRN (18:08)
[2022-10-17] MEDS: SENNOSIDES 1 TABLET PO SCH (20:31)
[2022-10-18] MEDS: hydrALAZINE 20 MG/ML VIAL IV PRN (00:19)
[2022-10-18] MEDS: HYDROmorphone 2 MG TABLET PO PRN ×2 (01:15→04:54)
[2022-10-18] MEDS: 0.9 % SODIUM CHLORIDE 10 ML SYRINGE IV SCH (04:57)
[2022-10-18] MEDS: LACTULOSE 20 GM/30 ML ORAL.SOL PO SCH (05:22)
[2022-10-18 07:32] LABS: ALT/SGPT 10 U/L (<40); AST/SGOT 20 U/L (<40); Albumin 2.9 gm/dL (3.2-5.2); Albumin/Globulin Ratio 0.9 (1.0-2.3); Alkaline Phosphatase 103 U/L (39-117); Bilirubin,Total 0.6 mg/dL (0.1-1.0); Blood Urea Nitrogen 34 mg/dL (6-20); Calcium 8.6 mg/dL (8.6-10.4); Carbon Dioxide 26 mmol/L (22-30); Chloride 99 mmol/L (96-108); Globulin 3.1 gm/dL (2.2-3.7); Glomerular Filtration Rate 4; Glucose 102 mg/dL (70-105)
--- NOTE | 2022-10-18 07:47 | Nephrology Progress Note ---
SUBJECTIVE Subjective Patient information: Note initiated : 10/18/22 at 7:46 am Patient: Aba Jarvis 62 y/o M admitted on 10/16/22 for MISSED DIALYSIS. Chief Complaint: Altered mental status Principal diagnosis: Altered mental status Pertinent ROS: Altered mental status improved Weakness Constitutional Vitals: Vital Signs Temp Pulse Resp BP Pulse Ox O2 Del Method 98.3 F 95 H 20 144/80 97 10/18/22 04:46 10/18/22 04:46 10/18/22 04:46 10/18/22 04:46 10/18/22 04:46 10/18/22 04:46 Period Temp Pulse Resp BP Sys/Moeller Pulse Ox O2 Del Method O2 Flow Rate Last 24 Hr 98.1 F-98.8 F 80-95 16-20 144-197/74-95 96-100 Room Air-Room Air Intake and Output 10/17/22 10/18/22 10/18/22 19:59 03:59 11:59 Intake Total 240 120 0 Balance 240 120 0 Weight 236 lb 3.2 oz Intake & Output: Intake & Output 10/17/22 10/18/22 10/18/22 19:59 03:59 11:59 Intake Total 240 120 0 Balance 240 120 0 Weight 236 lb 3.2 oz Intake: Oral 240 120 0 Other: Meal Dinner Percent of Meal Consumed 75% Stool Size Large Small Stool Color Brown Brown Green Stool Consistency Soft Loose # Voids 2 # Bowel Movements 2 # of times incontinent of 1 Bowels General appearance: cooperative and no acute distress Head Head exam: Present normal inspection Eye Eye exam: Present normal appearance ENT ENT exam: Present mucous membranes moist Respiratory Respiratory exam: Absent respiratory distress Cardiovascular Cardiovascular exam: Present normal rate and rhythm GI/Abdominal GI/Abdominal exam: Present soft; Absent tenderness Extremities Exam Extremities exam: Absent joint swelling or pedal edema Neurological Exam Neurological exam: Present alert Psychiatric Psychiatric exam: Present normal affect and normal mood Skin Skin exam: Present warm; Absent rash A/P Assessment and plan (1) ESRD (end stage renal disease) on dialysis: Assessment and plan: Aba Jarvis is a 62-year-old male with end stage renal disease on hemodialysis, cirrhosis of liver, being admitted on 10/16/22. He presented to [facility] ED via EMS with altered mental status. His mother reported that he missed dialysis x 3. Labs were significant for mild hyperkalemia and metabolic acidosis. Nephrology consultation was requested for end stage renal disease. End stage renal disease on hemodialysis in [place] on MWF, followed by Dr. Mcconnell. Missed dialysis. Left arm AV fistula. US on 10/12/22: Stenosis of AV fistula. Acute encephalopathy, likely metabolic due to cirrhosis of liver and alcohol wi thdrawal. Hyperkalemia, resolved. Metabolic acidosis, resolved. No significant fluid overload. CXR on 10/16/22: No acute abnormality. There is no evidence of fluid overload. Chronic anemia due to ESRD. Hb 8.5. Coagulopathy with INR 1.6, PLT 93. Progress: Hemodialysis on 07/17/22 for 3 hours with 1100 ml net UF, no heparin for coagulopathy. Recommendations/Plan: Hemodialysis today as inpatient or outpatient. Status: Chronic Time Spent With Patient Time: Total time spent is greater than 50% in coordination of care (as documented) at patient's floor/unit and/or counseling patient:
[2022-10-18] MEDS: SEVELAMER 800 MG TABLET PO SCH (07:58)
[2022-10-18] MEDS: FOLIC ACID 1 MG TABLET PO SCH (08:20)
[2022-10-18] MEDS: THIAMINE 100 MG TABLET PO SCH (08:20)
[2022-10-18] MEDS: MULTIVIT,THER IRON,CA,FA & MIN 1 TABLET PO SCH (08:20)
[2022-10-18] MEDS: DOCUSATE SODIUM 100 MG CAPSULE PO SCH (08:20)
[2022-10-18] MEDS: OMEPRAZOLE 20 MG CAPSULE PO SCH (08:21)
--- NOTE | 2022-10-18 08:38 | Discharge Summary ---
Discharge Provider Provider IMPORTANT FOLLOW-UP INFORMATION FOR PCP: Patient information: Note initiated : 10/18/22 at 8:38 am Service Date, if different from initiated Date: [] Patient: Aba Jarvis 62 y/o M admitted on 10/16/22 for MISSED DIALYSIS. Chief Complaint: [] Date of admission: 10/16/22 12:42 Discharge date: 10/18/22 Primary care physician: Sen Love MD Consults: 10/16/22 11:06 Consult to Physician [CONS] Stat Comment: Consulting Provider: Bj Braun Reason For Exam: Physician to Consult 10/17/22 07:27 Consult to Physician [CONS] Routine Comment: Consulting Provider: Edi Patiño Reason For Exam: Physician to Consult COURSE Hospital Course Hospital course: From [facility] Mr. Jarvis is a 62 year old pleasant male with past medical history cirrhosis of liver, significant for ESRD on HD, MWF via AV fistula left upper extremity brought to emergency room with complaint of confusion disorientation and multiple falls. Patient's mother provided history, Patient missed 2 session of dialysis on Sunday and Sunday. He has been confused and disoriented. No reported fever, chills, nausea, vomiting, abdominal pain. Patient had 1 or 2 fall without any injury. He has a small hematoma in the forehead. The reason patient missed his hemodialysis is because he was not feeling well. In the emergency room patient was confused, alert oriented X12. His work-up showed no evidence of infectious process. His CT of the head was unremarkable. LFTs showed normal AST/ALT and total bilirubin but alkaline phosphatase is mildly elevated at 129. His ammonia is 145. He had elevated ammonia in the past. His INR is 1.6 Nephrology has been consulted and pt admitted to the hospital for further management. #Acute metabolic encephalopathy. #Hepatic encephalopathy with ammonia of 145, h/o liver cirrhosis, -Pt responded well to lactulose therapy -noted was not taking his prescribed lactulose, strongly encouraged need to be compliant with lactulose and titrate to 2-3 BM in 24.hrs, pt verbalized understanding. #ESRD, on HD MWF via AV fistula left arm -Missed 2 session of hemodialysis -HD per nephrology -Pt will be discharged to HD unit, and then will go home At the time of discharge, pt is back to baseline mental status, has no acute complaints besides sorness in shoulders, pt is hemodynamicallys table. Discharge diagnosis: Hepatic encephalopathy Time Spent with Patient Time attestation: Total time spent providing and/or coordinating discharge services: Time spent: Greater than 30 minutes EXAM Constitutional Vitals: Temp Pulse Resp BP Pulse Ox O2 Del Method 98.3 F 95 H 20 144/80 97 10/18/22 04:46 10/18/22 04:46 10/18/22 04:46 10/18/22 04:46 10/18/22 04:46 10/18/22 04:46 Exam: Constitutional; Afebrile, cooperative, alert, not in distress. Eyes- No icterus, , No periorbital swelling Ears- Ext ear normal, hearing normal to conversation. Neck- Midline trachea, supple Respiratory system: Air Entry equal on both sides, No crackles or wheezing, no rhonchi. CVS- Rate rhythm regular, S1,S2 heard, no gallop, no rub. Systolic murmur present Abdomen- Soft nontender abdomen, no organomegaly, no tenderness, no guarding or rigidity, UNIT LEADER- AOOx3, moving all extremities, no gross focal deficit noted. Josh shoulder pain, able to move both shoulders, Left UE fistula has good thrill Discharge Data Data Completed and Pending Labs on day of discharge: Labs from last 24 hours 10/18/22 10/18/22 10/18/22 05:13 05:13 05:13 Sodium 137 Potassium 4.2 Chloride 99 Carbon Dioxide 26 Anion Gap 12.0 BUN 34 H Creatinine 11.4 H* GFR Calculation 4 Glucose 102 Calcium 8.6 Phosphorus Magnesium 2.1 Total Bilirubin 0.6 AST 20 ALT 10 Alkaline Phosphatase 103 Ammonia 44 Total Protein 6.0 Albumin 2.9 L Globulin 3.1 Albumin/Globulin Ratio 0.9 L 10/17/22 10/17/22 06:20 06:20 Sodium Potassium Chloride Carbon Dioxide Anion Gap BUN Creatinine GFR Calculation Glucose Calcium Phosphorus 5.5 H Magnesium 2.0 Total Bilirubin AST ALT Alkaline Phosphatase Ammonia Total Protein Albumin Globulin Albumin/Globulin Ratio Preliminary micro results at discharge 10/16/22 11:55 Blood Culture - Preliminary Blood 10/16/22 11:45 Blood Culture - Preliminary Blood Discharge Plan Patient/Caregiver Discharge Instructions Activity: increase activity as tolerated Diet: Renal Prescriptions: Continued Heidi-Lalo 0.8 mg tablet 1 tab PO QDAY furosemide 80 mg tablet 80 mg PO BID Qty: 60 11RF valsartan 320 mg tablet 320 mg PO QDAY Qty: 90 3RF Rx Instructions: New dose gabapentin 100 mg capsule 100 mg PO QHS Qty: 30 0RF morphine 15 mg tablet extended release 15 mg PO Q8H PRN (Reason: Pain) Qty: 60 0RF codeine sulfate 60 mg tablet 60 mg PO BID PRN (Reason: pain) Qty: 60 0RF omeprazole 20 MG capsule 20 mg PO BID trazodone 50 mg tablet 1 tab PO HSP PRN (Reason: insomnia) metoprolol succinate 50 mg tablet extended release 24 hr 1 tab PO QDAY clonazepam 0.5 mg tablet 1 tab PO TID clopidogrel 75 mg tablet 1 tab PO QAM aspirin 81 mg tablet,delayed release (DR/EC) 1 tab PO QAM baclofen 10 mg tablet 1 tab PO Q8HP PRN (Reason: muscle spasm) lactulose [Constulose] 10 gram/15 mL solution 30 ml PO TID sevelamer carbonate 800 mg tablet See Rx Instructions .ROUTE .COMPLEX Rx Instructions: Two tabs with meals and one tab with snacks Follow Up Plan Follow up with: Sen Love MD [Primary Care Provider] - Leland Mcconnell MD [Physician] - Patient Disposition: Home, Self-Care Hospital Course: see discharge summary Health Concerns: Reinforce compliance with use of lactulose Prognosis: Fair Rehab Potential: Fair I certify that the patient requires SNF services: No Overall status at discharge: patient is back to baseline Discharge Orders: Discharge Order (Routine); Ordered 10/18/22 Ordered By: Lyndon LINARES VTE Deep Vein Thrombosis/Pulmonary Embolism Present on Admission: No
[2022-10-18] MEDS ORDERED: CLOPIDOGREL 75 MG TABLET PO SCH (09:00)
[2022-10-18] MEDS ORDERED: ASPIRIN 81 MG TAB.CHEW PO SCH (09:00)
[2022-10-18] MEDS ORDERED: OLMESARTAN MEDOXOMIL 20 MG TABLET PO SCH (09:00)
[2022-10-18] MEDS ORDERED: FOLIC ACID/VITAMIN B COMP W-C 1 TAB TABLET PO SCH (09:00)
[2022-10-18] MEDS ORDERED: METOPROLOL SUCCINATE 50 MG TAB.XL.24H PO SCH (09:00)
--- NOTE | 2022-10-18 10:21 | XRay Report ---
HISTORY: Trauma, left shoulder pain FINDINGS: There is a well-positioned reverse shoulder prosthesis. There is no reabsorption of bone around the hardware. No fracture or subluxation are present. Bones are normally mineralized. Acromioclavicular joint is normal. There is a vascular stent in the distal portion of the upper arm. 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 IMPRESSION: Normal shoulder Interpreted and Authenticated by: Félix Cornelius 10/18/22
== END 2022-10-18 10:45 | disposition home or self-care (01) | DRG 441 ==
LOC: ED 09:58 → MEDSUR 12:42
PROVIDERS: ADMIT Internal Medicine; ATTEND Internal Medicine